=== PATIENT | female | born 1940 | race Caucasian/White ===

== ENCOUNTER → 2017-12-04 08:55 | Outpatient (CLI) | payer MEDICARE, OTHER, SELFPAY ==
[2017-12-04 11:47] LABS: Alanine Aminotransferase 34 IU/L (9-52); Albumin 4.2 g/dL (3.5-5.0); Albumin Globulin Ratio 1.6 (1.0-2.8); Alkaline Phosphatase 113 U/L (38-126); Aspartate Aminotransferase 21 IU/L (14-36); BUN Creatinine Ratio 26.3 (6-22); Bilirubin Total 0.4 mg/dL (0.2-1.3); Blood Urea Nitrogen 21 mg/dL (7-17); Calcium 9.8 mg/dL (8.4-10.2); Carbon Dioxide 29 mmol/L (22-32); Chloride 105 mmol/L (98-107); Estimated Glomerular Filt Rate > 60.0 mL/min (>60); Globulin 2.6 g/dL (1.7-4.1); Glucose 100 mg/dL (80-110); HDL Cholesterol 67 mg/dL (40-60); HEMOLYSIS < 15 (0-50); Sodium 142 mmol/L (137-145); Total Protein 6.8 g/dL (6.3-8.2); Triglycerides 156 mg/dL (35-150)
[2017-12-04 12:02] LABS: Cholesterol 374 mg/dL (140-199); LDL Cholesterol Calculated 276 mg/dL (<100); Potassium 5.5 mmol/L (3.4-5.1)
== END ==
PROVIDERS: PCP Family Medicine; Visit Provider Family Medicine
DX: E03.9 Hypothyroidism, unspecified (principal)
CPT/HCPCS: 36415; 80053; 80061

== ENCOUNTER 2017-12-11 06:50 | Outpatient (CLI) | payer MEDICARE, OTHER, SELFPAY ==
[2017-12-11] VITALS (9 sets, daily range): BP systolic 115–133; BP diastolic 56–83; PULSE 62–75; RESP 16; TEMP 36.2; O2SAT 99–100
--- NOTE | 2017-12-11 06:54 | DI.RAD.S_ITS ---
PROCEDURE: PAIN L INTERLAMINAR/CAUDAL INJ INDICATIONS: 76 year-old female with spinal stenosis, undergoing L4-L5 translaminar injection. FINDINGS: Fluoroscopic spot filming was performed to verify placement of spinal needles at the midline L4-L5 level(s), as labeled on the films. Appropriate location(s) of the needle tip(s) was confirmed by injection of iodinated contrast. IMPRESSION: Fluoroscopic guidance for L4-L5 posterior epidural injection. Dictated by: Jerel Camilo M.D. on 12/11/2017 at 17:32 Approved by: Jerel Camilo M.D. on 12/11/2017 at 17:33
[2017-12-11] MEDS: MIDAZOLAM 2 MG/2 ML VIAL IV (08:23)
--- NOTE | 2017-12-11 08:46 | P.PCN_ITS ---
Procedures Date/Time Date of procedure: 12/11/17 Time of procedure: 08:44 General Procedure description: Operative Note PREOP DIAGNOSIS 1. HNP WITH RADICULAR FEATURES, 2. MULTILEVEL CENTRAL STENOSIS, POST OP DIAGNOSIS 1. HNP WITH RADICULAR FEATURES, 2. MULTILEVEL CENTRAL STENOSIS, PROCEDURES 1. FLUORSCOPICALLY GUIDED CONTRAST CONTROLLED INTERLAMINAR EPIDURAL STEROID INJECTION - L5/S1 PHYSICIAN: Rayray Vincent DO INDICATIONs: [] is referred by [] for treatment of Bilateral Foraminal Stenosis R>L LE symptoms. FINDINGS Multilevel Central Spinal Stenosis with Nerve Root Compression DESCRIPTION OF PROCEDURE Fluoroscopically guided, contrast-controlled L5/S1 translaminar epidural steroid injection. Following denial of allergy and review of potential side effects and complications, including, but not necessarily limited to, infection, allergic reaction, local tissue breakdown, temporary as well as permanent nerve injury, paralysis, stroke and possible , the patient indicated that the patient understood and agreed to proceed. An informed consent document was signed by the patient, witnessed by a nurse, and placed in the patient's chart. Additionally, other treatment options including modalities, medications, and physical therapy were reviewed with the patient. Per the patient request, IV conscious sedation was administered via 2mg of Versed to patient comfort. The patient's vital signs were monitored throughout the procedure by both the nurse and the physician without significant fluctuation. The patient remained conversant throughout the procedure. In the prone position, following sterile prep and drape of the lumbar region, the L5/S1 translaminar space was identified fluoroscopically. The skin was anesthetized via a 25-gauge, 1.5-inch needle with 1% lidocaine solution. At this point, a 22-gauge short bevel spinal needle was atraumatically introduced and advanced under fluoroscopic guidance into the region of the L4/5 translaminar space. Depth was confirmed on lateral view. Radiological data, including multiple fluoroscopic views of the lumbar spine, reveal a spinal needle at the L5/S1 translaminar space. Lateral views then show placement of the needle in the epidural space. Subsequent views show contrast material flowing superiorly and inferiorly in the epidural space. No vascular or intrathecal uptake is observed. At this point, using loss of resistance technique with saline and air, the epidural space was entered. This was confirmed following negative aspiration with injection of approximately 1.5 cc of Isovue 200, showing excellent epidural flow without vascular or intrathecal uptake. At this point, 1 cc of 1 % lidocaine solution combined with 3 cc or 20 mg of dexamethasone and 80mg Depo medrol was injected without incident. The patient was then transferred to the recovery area where they were observed for an appropriate period of time after the injection. The patient reported a VAS score of 6 prior to the procedure and a post-procedure VAS of 0. Total Fluoroscopy Time: 11.8 seconds, 8.99 mGy Total Conscious Sedation Time: 24min POST OP INSTRUCTIONS The patient was provided a Pain Log to continue to record their response to the target-specific procedure prior to follow-up visit with their referring physician. Additionally, specific post-injection care instructions and a contact number to our office were provided if concerns arise regarding possible complications associated with the procedure are suspected. Rayray Vincent DO
[2017-12-11] MEDS: DEXAMETHASONE 10 MG/ML VIAL 20 MG INJ (09:25)
[2017-12-11] MEDS: BUPIVACAINE 0.25% (PF) 30 ML VIAL INJ (09:25)
[2017-12-11] MEDS: IOPAMIDOL 15 ML VIAL 3 ML INJ (09:25)
[2017-12-11] MEDS: methylPREDNISolone acetate 80 MG/ML VIAL INJ (09:25)
== END 2017-12-11 09:43 | disposition home or self-care (01) ==
LOC: RAD 06:51
PROVIDERS: PCP Family Medicine; Visit Provider Physical Medicine & Rehabilitation
DX: M48.061 Spinal stenosis, lumbar region without neurogenic claudication (principal); M41.20 Other idiopathic scoliosis, site unspecified
CPT/HCPCS: 62323; 99152; J1040; J1100; J2250

== ENCOUNTER → 2018-05-01 07:47 | Outpatient (CLI) | payer MEDICARE, OTHER, SELFPAY ==
--- NOTE | 2018-05-01 | DI.MG.S_ITS ---
UNILATERAL RIGHT DIGITAL SCREENING MAMMOGRAM 3D/2D WITH CAD POST MASTECTOMY: 05/01/2018 CLINICAL: Routine screening. Personal history of left breast cancer. Family history of breast cancer. Comparison is made to exams dated: 04/25/2017 mammogram, 10/23/2016 mammogram, and 10/08/2016 mammogram - [facility]. The tissue of right breast is extremely dense, which lowers the sensitivity of mammography. Current study was also evaluated with a Computer Aided Detection (CAD) system. No significant masses, calcifications, or other findings are seen in the breast. There has been no significant interval change. IMPRESSION: NEGATIVE There is no mammographic evidence of malignancy. A 1 year screening mammogram is recommended. This exam was interpreted at Station ID: [id number]. NOTE: For mammograms, a report in lay terms will be sent to the patient. Approximately 15% of breast malignancies will not be visualized mammographically. In the management of a palpable breast mass, a negative mammogram must not discourage biopsy of a clinically suspicious lesion. Electronically Signed By: Tino alba/jun:05/04/2018 01:53:59 letter sent: Normal Exam ACR BI-RADS Category 1: Negative [id number]
== END ==
PROVIDERS: PCP Family Medicine; Visit Provider Family Medicine
DX: Z12.31 Encounter for screening mammogram for malignant neoplasm of breast (principal); Z85.3 Personal history of malignant neoplasm of breast; Z80.3 Family history of malignant neoplasm of breast
CPT/HCPCS: 77063; 77065

== ENCOUNTER → 2018-07-15 08:48 | Outpatient (CLI) | payer MEDICARE, OTHER, SELFPAY ==
[2018-07-15 10:38] LABS: Thyroid Stimulating Hormone 0.89 uIU/mL (0.47-4.68)
== END ==
PROVIDERS: PCP Family Medicine; Visit Provider Family Medicine
DX: E03.9 Hypothyroidism, unspecified (principal)
CPT/HCPCS: 36415; 84443

== ENCOUNTER 2018-10-21 12:16 | Outpatient (CLI) | payer MEDICARE, OTHER, SELFPAY ==
[2018-10-21] VITALS (8 sets, daily range): BP systolic 119–137; BP diastolic 63–73; PULSE 71–82; RESP 16–18; TEMP 36.2; O2SAT 95–100
--- NOTE | 2018-10-21 12:22 | DI.RAD.S_ITS ---
PROCEDURE: PAIN L INTERLAMINAR/CAUDAL INJ INDICATIONS: SPONDYLOSIS FINDINGS: Fluoroscopic spot filming was performed to verify placement of spinal needles at the L4-5 midline translaminar level, as labeled on the films. Appropriate location(s) of the needle tip(s) was confirmed by injection of iodinated contrast. IMPRESSION: Normal needle tip positioning for L5 level interlaminar notch epidural steroid injection. Dictated by: Deyvi Paniagua M.D. on 10/21/2018 at 14:46 Approved by: Deyvi Paniagua M.D. on 10/21/2018 at 14:47
[2018-10-21] MEDS: MIDAZOLAM 5 MG/5 ML VIAL IV (13:15)
[2018-10-21] MEDS: BUPIVACAINE 0.25% (PF) VIAL 2 ML INJ (13:22)
[2018-10-21] MEDS: DEXAMETHASONE 10 MG/ML VIAL 20 MG INJ (13:23)
[2018-10-21] MEDS: IOPAMIDOL 15 ML VIAL 3 ML INJ (13:23)
--- NOTE | 2018-10-21 13:29 | PC.NURSE ---
Pt tolerated procedure well. Able to get off table with 2 person minimal assist. Pt's legs a little unsteady. Transferred pt to preprocedure room via wheelchair for continued monitoring with Candace MATTA.
--- NOTE | 2018-10-21 13:34 | P.PCN_ITS ---
Procedures Date/Time Date of procedure: 10/21/18 Time of procedure: 13:33 General Procedure description: PROVIDER: Rayray Vincent DO Operative Note PREOP DIAGNOSIS 1. HNP WITH RADICULAR FEATURES, 2. MULTILEVEL CENTRAL STENOSIS, POST OP DIAGNOSIS 1. HNP WITH RADICULAR FEATURES, 2. MULTILEVEL CENTRAL STENOSIS PROCEDURES 1. FLUORSCOPICALLY GUIDED CONTRAST CONTROLLED INTERLAMINAR EPIDURAL STEROID INJECTION -L4/5 PHYSICIAN: Rayray Vincent DO INDICATIONs: Alejandra is referred by Dr. Moses for treatment of Bilateral Foraminal Stenosis R>L LE symptoms. FINDINGS Multilevel Central Spinal Stenosis with Nerve Root Compression DESCRIPTION OF PROCEDURE Fluoroscopically guided, contrast-controlled L4/5 translaminar epidural steroid injection. Following denial of allergy and review of potential side effects and complications, including, but not necessarily limited to, infection, allergic reaction, local tissue breakdown, temporary as well as permanent nerve injury, paralysis, stroke and possible , the patient indicated that the patient understood and agreed to proceed. An informed consent document was signed by the patient, witnessed by a nurse, and placed in the patient's chart. Additionally, other treatment options including modalities, medications, and physical therapy were reviewed with the patient. After review of previous anaesthesic history and IV conscious sedation the patient was deemed safe to proceed with todays procedure with IV conscious sedation as ASA class II designation. Safety time-out was performed to confirm patient ID, procedure to be performed and site of procedure. IV sedation was ac complished with a combination of 2mg of Versed was administered by the RN after DO order, titrated to patient comfort during the course of the procedure while the patient remained responsive to all verbal commands In the prone position, following sterile prep and drape of the lumbar region, the L4/5 translaminar space was identified fluoroscopically. The skin was anesthetized via a 25-gauge, 1.5-inch needle with 1% lidocaine solution. At this point, a 22-gauge short bevel spinal needle was atraumatically introduced and advanced under fluoroscopic guidance into the region of the L4/5 transla minar space. Depth was confirmed on lateral view. Radiological data, including multiple fluoroscopic views of the lumbar spine, reveal a spinal needle at the L4/5 translaminar space. Lateral views then show placement of the needle in the epidural space. Subsequent views show contrast material flowing superiorly and inferiorly in the epidural space. No vascular or intrathecal uptake is observed. At this point, using loss of resistance technique with saline and air, the epidural space was entered. This was confirmed following negative aspiration with injection of approximately 1.5 cc of Isovue 200, showing excellent epidural flow without vascular or intrathecal uptake. At this point, 1 cc of 1% lidocaine solution combined with 2cc or 20mg of dexamethasone was injected without incident. The patient tolerated the procedure well without signs or symptoms of complications prior to transfer to the recovery area continued monitoring without incident. The patient was then transferred to the recovery area where they were observed for an appropriate period of time after the injection. The patient reported a VAS score of 6 prior to the procedure and a post- procedure VAS of 0. Total Fluoroscopy Time: 11.8 seconds, 8.99 mGy Total Conscious Sedation Time: 24min POST OP INSTRUCTIONS The patient was provided a Pain Log to continue to record their response to the target-specific procedure prior to follow-up visit with their referring physician. Additionally, specific post-injection care instructions and a contact number to our office were provided if concerns arise regarding possible complications associated with the procedure are suspected. Rayray Vincent, Complications: none
--- NOTE | 2018-10-21 13:36 | PC.NURSE ---
ACCEPTED CARE OF PT IN STABLE CONDITION IN POST PROC AREA.
--- NOTE | 2018-10-22 12:21 | PC.NURSE ---
Follow up call made post L4/5 Translaminar AMISH, message left as pt did not answer the phone.
== END 2018-10-21 15:16 | disposition home or self-care (01) ==
PROVIDERS: PCP Family Medicine; Visit Provider Physical Medicine & Rehabilitation
DX: M48.061 Spinal stenosis, lumbar region without neurogenic claudication (principal); M47.817 Spondylosis without myelopathy or radiculopathy, lumbosacral region
CPT/HCPCS: 62323; 99152; J1100; J2250; J3010

== ENCOUNTER → 2019-01-20 12:27 | Outpatient (CLI) | payer MEDICARE, OTHER, SELFPAY ==
[2019-01-20 13:02] LABS: Add Manual Diff / Slide Review NO; Basophils Absolute Auto 0 /uL (0-100); Eosinophils Absolute Auto 200 /uL (0-450); Eosinophils Percent Auto 3.6 % (2-4); Hemoglobin 12.4 g/dL (12.0-16.0); Lymphocytes Absolute Auto 1500 /uL (1100-4500); Lymphocytes Percent Auto 31.4 % (25-40); Mean Corpuscular HGB Conc 32.6 % (30-36); Mean Corpuscular Hemoglobin 29.6 PG (26-34); Mean Corpuscular Volume 90.9 fL (80-100); Monocytes Absolute Auto 300 /uL (0-900); Monocytes Percent Auto 7.5 % (3-14); Neutrophils Absolute Auto 2600 /uL (1500-7000); Neutrophils Percent Auto 56.5 % (50-75); Platelet Count 238 X10^3/uL (150-400); Red Blood Cell Count 4.19 X10^6/uL (4.0-5.2); Red Cell Distribution Width 13.5 % (11.6-14.8); White Blood Cell Count 4.6 X10^3/uL (4.5-11.0)
[2019-01-20 13:41] LABS: Alanine Aminotransferase 31 IU/L (9-52); Albumin 4.2 g/dL (3.5-5.0); Albumin Globulin Ratio 1.6 (1.0-2.8); Alkaline Phosphatase 109 U/L (38-126); Aspartate Aminotransferase 21 IU/L (14-36); Bilirubin Total 0.3 mg/dL (0.2-1.3); Blood Urea Nitrogen 20 mg/dL (7-17); Calcium 9.7 mg/dL (8.4-10.2); Carbon Dioxide 27 mmol/L (22-32); Chloride 107 mmol/L (98-107); Estimated Glomerular Filt Rate > 60.0 mL/min (>60); Globulin 2.6 g/dL (1.7-4.1); Glucose 94 mg/dL (80-110); HEMOLYSIS < 15 (0-50); Potassium 4.3 mmol/L (3.4-5.1); Sodium 142 mmol/L (137-145); Total Protein 6.8 g/dL (6.3-8.2)
[2019-01-20 14:16] LABS: Thyroid Stimulating Hormone 0.21 uIU/mL (0.47-4.68)
[2019-01-20 17:07] LABS: Free T4, Direct Thyroxine 1.07 ng/dL (0.78-2.19)
== END ==
PROVIDERS: Visit Provider Hospitalist
DX: R26.89 Other abnormalities of gait and mobility (principal); R79.89 Other specified abnormal findings of blood chemistry; E03.8 Other specified hypothyroidism
CPT/HCPCS: 36415; 80053; 84439; 84443; 84481; 85025

== ENCOUNTER 2019-02-23 10:13 | Emergency (ER) | payer MEDICARE, OTHER, SELFPAY ==
[2019-02-23 10:37] VITALS: BP 119/76; PULSE 88; RESP 18; TEMP 36.9; O2SAT 100
--- NOTE | 2019-02-23 10:40 | DI.RAD.S_ITS ---
PROCEDURE: XR RIBS LT MIN 3V W CXR1V INDICATIONS: fall w/ left anterior rib pain. TECHNIQUE: 2 views of the left ribs were acquired, along with a single view chest. COMPARISON: CXR 09/05/2016. FINDINGS: Surgical changes and devices: Left breast/axilla surgical clips. Bones and chest wall: No displaced rib fracture demonstrated. No dislocation. No suspicious bony lesions. Overlying soft tissues appear unremarkable. Mild scoliosis. Lungs and pleura: No pleural effusions or pneumothorax. Mild increased interstitial markings and increased lung volumes. Mediastinum: Mediastinal contours appear normal. Heart size is normal. IMPRESSION: No rib fracture identified. Emphysematous change. Dictated by: Zak Ruby M.D. on 02/23/2019 at 11:13 Approved by: Zak Ruby M.D. on 02/23/2019 at 11:18
[2019-02-23 11:56] VITALS: BP 112/68; PULSE 68; RESP 17; O2SAT 100
[2019-02-23 12:00] VITALS: BP 111/60; PULSE 63; RESP 16; O2SAT 100
[2019-02-23] MEDS: LIDOCAINE PATCH 1 EACH ADH..PATCH TOP (12:04)
[2019-02-23 12:13] VITALS: PULSE 71; RESP 14; O2SAT 99
--- NOTE | 2019-02-23 12:19 | ED_ITS ---
HPI - Chest Pain <YNES Recio - Last Filed: 02/23/19 12:36> General Chief Complaint: Chest Pain Stated Complaint: pain with deep breath post fall Time Seen by Provider: 02/23/19 11:26 Source: patient Mode of arrival: ambulatory Limitations: no limitations History of Present Illness HPI narrative: The patient is an 78-year-old female cancer who presents for chief complaint of chest wall pain. She states that she was picking plums, when she tripped on a stump and fell, landing with her chest on the stump. She states that the left side of the front of her chest is painful. She states she has had a mastectomy on that side. She states that it hurts worse when she takes a deep breath or coughs. She denies any shortness of breath. She has not taken anything for the pain. She denies any neck pain, back pain, hitting her head, loss of consciousness or any other issues. She denies any abdominal pain. She is adamant that she tripped on the stump did not have an episode of syncope. Related Data Home Medications Medication Instructions Recorded Confirmed cholecalciferol (vitamin D3) 5,000 5,000 unit PO DAILY 12/05/17 02/23/19 unit capsule latanoprost 0.005 % eye drops 1 drp EYE-BOTH QPM 90 Days #7 ml 05/09/18 02/23/19 [LT BREAST PROSTHETIC] 1 ea MISCELLANEOUS DIRECTED 02/23/19 02/23/19 [PROSTHETIC BRA SUPPO] 1 ea MISCELLANEOUS DIRECTED 02/23/19 02/23/19 levothyroxine [Synthroid] 50 mcg PO DAILY 02/23/19 02/23/19 sertraline 75 mg PO BEDTIME 02/23/19 02/23/19 Previous Rx's Medication Instructions Recorded celecoxib 200 mg capsule 200 mg PO DAILY #90 cap 12/08/18 hydrocodone-acetaminophen [[place]] 1 tab PO Q4-6H PRN #7 tab 02/23/19 lidocaine 1 patch TOP DAILY #15 each 02/23/19 Allergies Allergy/AdvReac Type Severity Reaction Status Date / Time No Known Drug Allergies Allergy Verified 02/23/19 10:40 Review of Systems <YNES Recio - Last Filed: 02/23/19 12:36> Review of Systems GENERAL: Denies chills, fatigue, malaise, fever, sweats. HEENT: Denies sinus pain, ear pain, sore throat, difficulty swallowing, dizziness. RESPIRATORY: See HPI CARDIOVASCULAR: Denies chest pain, palpitations, orthopnea, edema, GASTROINTESTINAL: Denies nausea, vomiting, abdominal pain, diarrhea, constipation, melena. : Denies dysuria, frequency, incontinence, hematuria, urinary retention. MUSCULOSKELETAL: See HPI SKIN: Denies rash, skin lesions, or other NEUROLOGIC: Denies weakness, headache, numbness, change in speech, confusion, seizures, incoordination. PSYCHIATRIC: No concerning psychosocial issues. 12 point review of systems is negative except for those stated above PFS <YNES Recio - Last Filed: 02/23/19 12:36> Medical History Complete rotator cuff tear of left shoulder (Chronic) Hx of breast cancer (Chronic) Lumbar facet arthropathy (Chronic) Lumbar spinal stenosis (Chronic) Scoliosis (and kyphoscoliosis), idiopathic (Chronic) Acquired hypothyroidism (Chronic 02/08/17) Recurrent major depressive disorder, in full remission (Chronic 02/08/17) Chronic back pain (Chronic 1984) Hayfever (Chronic 1980) Hearing loss (Chronic) Osteoporosis (Chronic) Rheumatoid arthritis (Chronic 193) Shoulder pain (Chronic 1997) Breast cancer (Resolved 2013) Cataract (Resolved) Melanoma (Resolved) Mumps (Resolved 1955) Retinal detachment (Resolved) Thyroid nodule (Resolved ~1979) Tuberculosis (Resolved) Surgical History Anesthesia (Resolved) History of detached retina repair (Resolved 1992) History of detached retina repair (Resolved 1985) History of hip replacement (Resolved 2009) History of shoulder surgery (Resolved) History of sinus surgery (Resolved 1986) History of sinus surgery (Resolved 1988) History of sinus surgery (Resolved 1992) Family History Sister Age: 91 High cholesterol Diabetes mellitus Sister Age: 84 High cholesterol Brother No problems noted. Father Tuberculosis Mother No problems noted. Social History marital status: pets and animals: Yes education level: college seatbelt use: always helmet use: Yes water heater temp set < 120 deg: Yes working smoke detector in home: Yes fire extinguisher in home: Yes carbon monox detector in home: Yes Smoking Status: Never smoker during the past year weight has: remained stable well-balanced diet: daily or most days daily servings fruits/ve-4 caffeine: Yes eating out: rarely or never Type(s) of exercise: walking frequency: daily duration: other Family History Sister Age: 91 High cholesterol Diabetes mellitus Sister Age: 84 High cholesterol Brother No problems noted. Father Tuberculosis Mother No problems noted. Social History marital status: pets and animals: Yes education level: college seatbelt use: always helmet use: Yes water heater temp set < 120 deg: Yes working smoke detector in home: Yes fire extinguisher in home: Yes carbon monox detector in home: Yes Smoking Status: Never smoker during the past year weight has: remained stable well-balanced diet: daily or most days daily servings fruits/ve-4 caffeine: Yes eating out: rarely or never Type(s) of exercise: walking frequency: daily duration: other Exam <YNES Recio - Last Filed: 02/23/19 12:36> Narrative Exam Narrative: GENERAL: This is a well-nourished, well-developed patient, no acute distress HEAD: Atraumatic. Normocephalic. No temporal or scalp tenderness. EYES: Pupils equal round and reactive. Extraocular motions intact. No scleral icterus. No injection or drainage. ENT: Nose without bleeding, purulent drainage or septal hematoma. Throat without erythema, tonsillar hypertrophy or exudate. Uvula midline. Airway patent. NECK: Trachea midline. No JVD or lymphadenopathy. Supple, nontender, no meningeal signs. CARDIOVASCULAR: Regular rate and rhythm RESPIRATORY: Clear to auscultation. Breath sounds equal bilaterally. No wheezes, rales, or rhonchi. No cough. No increased respiratory effort. No accessory muscle use. Pain to palpation of left side anterior chest wall. Pain to anterior posterior chest wall compression as well as lateral chest wall compression. Point tenderness noted just distal to mastectomy incision with overlying ecchymosis. GASTROINTESTINAL: Abdomen soft, non-tender, nondistended. No hepato- splenomegaly, or palpable masses. No guarding. EXTREMITIES: No clubbing, cyanosis, or edema. No joint tenderness, effusion, or edema noted. BACK: Nontender without deformity or crepitance. No flank tenderness. NEURO: AOx3. SKIN: Slight ecchymosis noted on anterior aspect of chest wall by mastectomy scar. Initial Vital Signs Initial Vital Signs: Vital Signs Temperature 98.4 F 02/23/19 10:37 Pulse Rate 88 02/23/19 10:37 Respiratory Rate 18 02/23/19 10:37 Blood Pressure 119/76 02/23/19 10:37 Pulse Oximetry 100 02/23/19 10:37 <Geovanna Arnett DO - Last Filed: 02/24/19 07:04> Initial Vital Signs Initial Vital Signs: Vital Signs Temperature 98.4 F 02/23/19 10:37 Pulse Rate 88 02/23/19 10:37 Respiratory Rate 18 02/23/19 10:37 Blood Pressure 119/76 02/23/19 10:37 Pulse Oximetry 100 02/23/19 10:37 Course <LENORA RecioBC - Last Filed: 02/23/19 12:36> Orders Ordered: Discontinued Medications Lidocaine (Lidoderm) 1 each TOP NOW ONE Stop: 02/23/19 11:50 Last Admin: 02/23/19 12:04 Dose: 1 each Vital Signs - 8 hr 02/23/19 10:37 02/23/19 11:56 02/23/19 12:00 Temperature 98.4 F Pulse Rate 88 68 63 Respiratory Rate 18 17 16 Blood Pressure 119/76 Blood Pressure [Left Arm] 112/68 111/60 Pulse Oximetry 100 100 100 02/23/19 12:13 Temperature Pulse Rate 71 Respiratory Rate 14 Blood Pressure Blood Pressure [Left Arm] Pulse Oximetry 99 <Geovanna Arnett DO - Last Filed: 02/24/19 07:04> Orders Ordered: Discontinued Medications Lidocaine (Lidoderm) 1 each TOP NOW ONE Stop: 02/23/19 11:50 Last Admin: 02/23/19 12:04 Dose: 1 each Vital Signs - 8 hr 02/23/19 10:37 02/23/19 11:56 02/23/19 12:00 Temperature 98.4 F Pulse Rate 88 68 63 Respiratory Rate 18 17 16 Blood Pressure 119/76 Blood Pressure [Left Arm] 112/68 111/60 Pulse Oximetry 100 100 100 02/23/19 12:13 Temperature Pulse Rate 71 Respiratory Rate 14 Blood Pressure Blood Pressure [Left Arm] Pulse Oximetry 99 MDM - Chest Pain <Ina PachecoETHEL-BC - Last Filed: 02/23/19 12:36> Imaging Data Chest x-ray: Radiologist's impression: Alejandra León 78 F [address] [address] XRay Report Signed Patient: Alejandra León LMR#: [id number] : 1940cct:[id number] Age/Sex: 78 / FDate of Service: 02/23/19 Loc: ED Accession Number: [id number] Procedure: XR ribs LT min 3V w CXR1V Ordering Provider: Geovanna Arnett D.O. PROCEDURE: XR RIBS LT MIN 3V W CXR1V INDICATIONS: fall w/ left anterior rib pain. TECHNIQUE: 2 views of the left ribs were acquired, along with a single view chest. COMPARISON: CXR 09/05/2016. FINDINGS: Surgical changes and devices: Left breast/axilla surgical clips. Bones and chest wall: No displaced rib fracture demonstrated. No dislocation. No suspicious bony lesions. Overlying soft tissues appear unremarkable. Mild scoliosis. Lungs and pleura: No pleural effusions or pneumothorax. Mild increased interstitial markings and increased lung volumes. Mediastinum: Mediastinal contours appear normal. Heart size is normal. IMPRESSION: No rib fracture identified. Emphysematous change. Dictated by: Zak Ruby M.D. on 02/23/2019 at 11:13 Approved by: Zak Ruby M.D. on 02/23/2019 at 11:18 [facility] Narrative Medical decision making narrative: The patient is an 78-year-old female who presents with a chief complaint of chest wall pain after ground level fall onto a tree stump. She is in no respiratory distress, oxygenating well. However she does have point tenderness on exam as well as tenderness when taking a deep breath. Rib x-ray show no acute fracture. However treat her back chest wall contusion. We discussed the use of deep breathing help prevent pneumonia. She was given incentive spirometer teaching by respiratory therapy. I did give her small pain medication prescription order to help her sleep. She was treated with lidocaine patches the emergency department. Encouraged follow-up with PCP as well as come back to the ER for any acute concerns chest as severe respiratory distress. No questions or concerns upon discharge. Patient is hemodynamically stable nontoxic-appearing throughout her stay in the ER. Discharge Plan Departure Patient Disposition: Home Clinical Impression: Chest wall contusion Qualifiers: Encounter type: initial encounter Laterality: left Qualified Code(s): S20.212A - Contusion of left front wall of thorax, initial encounter Discharge Date/Time: 02/23/19 12:36 Interventions: ED Discharge Assessment Last Done: 02/23/19 12:36 Instructions: How to Use an Incentive Spirometer, DI for Contusion, DI for Rib Contusion Activity Restrictions/Additional Instructions: Your chest chest x-ray shows no rib fractures. However you appear to have a chest wall contusion. I have given you prescriptions of pain medicine as well as Numbing patches. Be aware that [place] can be constipating and sedating. I also suggest ice and Tylenol as needed. Please use The incentive spirometer. Please follow up with her primary care provider. Please come back to emergency department for any acute concerns as a severe respiratory distress, concern of heart attack or stroke Prescriptions: New hydrocodone-acetaminophen [[place]] 5-325 mg tablet 1 tab PO Q4-6H PRN (Reason: pain) Qty: 7 RF: 0 lidocaine 5 % adhesive patch,medicated 1 patch TOP DAILY Qty: 15 RF: 0 No Action levothyroxine [Synthroid] 50 mcg tablet 50 mcg PO DAILY RF: 0 sertraline 25 mg tablet 75 mg PO BEDTIME RF: 0 [LT BREAST PROSTHETIC] 1 ea miscellaneous DIRECTED RF: 0 [PROSTHETIC BRA SUPPO] 1 ea miscellaneous DIRECTED RF: 0 celecoxib [Celebrex] 200 mg capsule 200 mg PO DAILY Qty: 90 RF: 2 cholecalciferol (vitamin D3) 5,000 unit capsule 5,000 unit PO DAILY RF: 0 latanoprost 0.005 % drops 1 drp EYE-BOTH QPM 90 Days Qty: 7 RF: 0 <Geovanna Arnett DO - Last Filed: 02/24/19 07:04> Cosign ED Attending Cosnasimaature Attestation: I was immediately available in the department for consultation. Documentation has been reviewed. I agree with assessment and plan.
== END 2019-02-23 12:36 | disposition home or self-care (01) ==
PROVIDERS: Emergency Provider Nurse Practitioner Family
DX: S20.212A Contusion of left front wall of thorax, initial encounter (principal); W01.0XXA Fall on same level from slipping, tripping and stumbling without subsequent striking against object, initial encounter
CPT/HCPCS: 71101; 99282; 99283

== ENCOUNTER → 2019-05-04 12:59 | Outpatient (CLI) | payer MEDICARE, OTHER, SELFPAY ==
--- NOTE | 2019-05-04 | DI.MG.S_ITS ---
UNILATERAL RIGHT DIGITAL SCREENING MAMMOGRAM 3D/2D WITH CAD POST MASTECTOMY: 05/04/2019 CLINICAL: Routine screening. Personal history of left breast cancer. Family history of breast cancer. Comparison is made to exams dated: 05/01/2018 mammogram, 04/25/2017 mammogram, and 10/23/2016 mammogram - [facility]. The tissue of right breast is extremely dense, which lowers the sensitivity of mammography. Current study was also evaluated with a Computer Aided Detection (CAD) system. No significant masses, calcifications, or other findings are seen in the breast. There has been no significant interval change. IMPRESSION: NEGATIVE There is no mammographic evidence of malignancy. A 1 year screening mammogram is recommended. This exam was interpreted at Station ID: [id number]. NOTE: For mammograms, a report in lay terms will be sent to the patient. Approximately 15% of breast malignancies will not be visualized mammographically. In the management of a palpable breast mass, a negative mammogram must not discourage biopsy of a clinically suspicious lesion. Electronically Signed By: Brenna [email or web address]/jun:05/04/2019 17:15:52 letter sent: Normal Exam ACR BI-RADS Category 1: Negative [id number]
== END ==
PROVIDERS: Visit Provider Family Medicine
DX: Z12.31 Encounter for screening mammogram for malignant neoplasm of breast (principal); Z85.3 Personal history of malignant neoplasm of breast; Z80.3 Family history of malignant neoplasm of breast
CPT/HCPCS: 77063; 77067

== ENCOUNTER → 2019-05-13 09:56 | Outpatient (CLI) | payer MEDICARE, OTHER, SELFPAY ==
[2019-05-13 10:12] LABS: Bacteria Urine None Seen; RBC Urine None Seen (0-5/HPF)
[2019-05-13 10:57] LABS: Add Manual Diff / Slide Review NO; Basophils Absolute Auto 0 /uL (0-100); Basophils Percent Auto 0.7 % (0-2); Eosinophils Absolute Auto 200 /uL (0-450); Eosinophils Percent Auto 3.3 % (2-4); Hematocrit 38.4 % (36-46); Hemoglobin 12.8 g/dL (12.0-16.0); Lymphocytes Absolute Auto 1200 /uL (1100-4500); Lymphocytes Percent Auto 26.4 % (25-40); Mean Corpuscular HGB Conc 33.3 % (30-36); Mean Corpuscular Hemoglobin 29.9 PG (26-34); Mean Corpuscular Volume 89.9 fL (80-100); Monocytes Absolute Auto 400 /uL (0-900); Monocytes Percent Auto 8.5 % (3-14); Neutrophils Absolute Auto 2900 /uL (1500-7000); Neutrophils Percent Auto 61.1 % (50-75); Platelet Count 241 X10^3/uL (150-400); Red Blood Cell Count 4.28 X10^6/uL (4.0-5.2); Red Cell Distribution Width 13.2 % (11.6-14.8); White Blood Cell Count 4.7 X10^3/uL (4.5-11.0)
[2019-05-13 11:02] LABS: Hemoglobin A1C% w Est Avg Glu 5.9 % (4.0-6.0)
[2019-05-13 11:10] LABS: BUN Creatinine Ratio 26.3 (6-22); Blood Urea Nitrogen 21 mg/dL (7-17); Calcium 9.6 mg/dL (8.4-10.2); Carbon Dioxide 30 mmol/L (22-32); Chloride 103 mmol/L (98-107); Estimated Glomerular Filt Rate > 60.0 mL/min (>60); Glucose 98 mg/dL (80-110); HEMOLYSIS < 15 (0-50); Potassium 4.2 mmol/L (3.4-5.1); Sodium 140 mmol/L (137-145)
[2019-05-13 13:47] LABS: Appearance Urine UA CLEAR; Bilirubin Urine UA NEGATIVE (NEGATIVE); Color Urine UA YELLOW; Glucose Urine UA NEGATIVE (Negative); Ketones Urine UA NEGATIVE (NEGATIVE); Leukocyte Esterase Urine UA 1+ (NEGATIVE); Nitrite Urine UA NEGATIVE (Negative); Occult Blood Urine UA NEGATIVE (Negative); Protein Urine UA NEGATIVE (Negative); Specific Gravity Urine UA <=1.005 (1.000-1.035); Urobilinogen Urine UA 0.2 E.U./dL (0.2)
[2019-05-13 14:02] LABS: Culture Indicated Urine Specimen Cultured; WBC Urine 5-10/HPF (0-5/HPF)
== END ==
PROVIDERS: Hospitalist; Family Provider Family Medicine; PCP Family Medicine; Visit Provider Orthopaedic Surgery
DX: Z01.818 Encounter for other preprocedural examination (principal); Z01.812 Encounter for preprocedural laboratory examination; N39.9 Disorder of urinary system, unspecified; Z13.1 Encounter for screening for diabetes mellitus; R73.9 Hyperglycemia, unspecified; E03.9 Hypothyroidism, unspecified
CPT/HCPCS: 36415; 80048; 81001; 83036; 84443; 85025; 87086; 93005; 93010

== ENCOUNTER 2019-05-15 13:34 | Outpatient (CLI) | payer MEDICARE, OTHER, SELFPAY ==
[2019-05-15] VITALS (8 sets, daily range): BP systolic 105–131; BP diastolic 48–68; PULSE 73–84; RESP 16–18; TEMP 36.5; O2SAT 97–100
--- NOTE | 2019-05-15 13:36 | DI.RAD.S_ITS ---
PROCEDURE: PAIN L INTERLAMINAR/CAUDAL INJ INDICATIONS: SCOLIOSIS FINDINGS: Fluoroscopic spot filming was performed to verify placement of spinal needles at the L4-L5 level(s), as labeled on the films. Appropriate location(s) of the needle tip(s) was confirmed by injection of iodinated contrast. IMPRESSION: Fluoroscopy for pain management. Dictated by: Patito Desai M.D. on 05/15/2019 at 17:08 Approved by: Patito Desai M.D. on 05/15/2019 at 17:08
[2019-05-15] MEDS: MIDAZOLAM 5 MG/5 ML VIAL IV (16:11)
[2019-05-15] MEDS: methylPREDNISolone acetate 80 MG/ML VIAL INJ (16:16)
[2019-05-15] MEDS: IOPAMIDOL 15 ML VIAL 3 ML INJ (16:16)
[2019-05-15] MEDS: BUPIVACAINE 0.25% (PF) VIAL 2 ML INJ (16:16)
[2019-05-15] MEDS: DEXAMETHASONE 10 MG/ML VIAL 20 MG INJ (16:17)
--- NOTE | 2019-05-15 16:48 | P.PCN_ITS ---
Procedures Date/Time Date of procedure: 05/15/19 Time of procedure: 16:48 General Procedure description: PROVIDER: Rayray Vincent DO Operative Note PREOP DIAGNOSIS 1. HNP WITH RADICULAR FEATURES, 2. MULTILEVEL CENTRAL STENOSIS, POST OP DIAGNOSIS 1. HNP WITH RADICULAR FEATURES, 2. MULTILEVEL CENTRAL STENOSIS PROCEDURES 1. FLUORSCOPICALLY GUIDED CONTRAST CONTROLLED INTERLAMINAR EPIDURAL STEROID INJECTION -L4/5 PHYSICIAN: Rayray Vincent DO INDICATIONs: Alejandra is referred by Dr. Moses for treatment of Bilateral Foraminal Stenosis R>L LE symptoms. FINDINGS Multilevel Central Spinal Stenosis with Nerve Root Compression DESCRIPTION OF PROCEDURE Fluoroscopically guided, contrast-controlled L4/5 translaminar epidural steroid injection. Following review of allergy and review of potential side effects and complications, including, but not necessarily limited to, infection, allergic reaction, local tissue breakdown, temporary as well as permanent nerve injury, paralysis, stroke and possible , the patient indicated that the patient understood and agreed to proceed. An informed consent document was signed by the patient, witnessed by a nurse, and placed in the patient's chart. Additionally, other treatment options including modalities, medications, and physical therapy were reviewed with the patient. After review of previous anaesthesic history and IV conscious sedation the patient was deemed safe to proceed with todays procedure with IV conscious sedation as ASA class II designation. Safety time-out was performed to confirm patient ID, procedure to be performed and site of procedure. IV sedation was ac complished with a combination of 2mg of Versed was administered by the RN after DO order, titrated to patient comfort during the course of the procedure while the patient remained responsive to all verbal commands In the prone position, following sterile prep and drape of the lumbar region, the L4/5 translaminar space was identified fluoroscopically. The skin was anesthetized via a 25-gauge, 1.5-inch needle with 1% lidocaine solution. At this point, a 22-gauge short bevel spinal needle was atraumatically introduced and advanced under fluoroscopic guidance into the region of the L4/5 transla minar space. Depth was confirmed on lateral view. Radiological data, including multiple fluoroscopic views of the lumbar spine, reveal a spinal needle at the L4/5 translaminar space. Lateral views then show placement of the needle in the epidural space. Subsequent views show contrast material flowing superiorly and inferiorly in the epidural space. No vascular or intrathecal uptake is observed. At this point, using loss of resistance technique with saline and air, the epidural space was entered. This was confirmed following negative aspiration with injection of approximately 1.5 cc of Isovue 200, showing excellent epidural flow without vascular or intrathecal uptake. At this point, 1 cc of 1% lidocaine solution combined with 3cc or 20mg of dexamethasone and 6mg betamethasone was injected without incident. The patient tolerated the procedure well without signs or symptoms of complications prior to transfer to the recovery area continued monitoring without incident. The patient was then transferred to the recovery area where they were observed for an appropriate period of time after the injection. The patient reported a VAS score of 6 prior to the procedure and a post- procedure VAS of 0. Total Fluoroscopy Time: 11.8 seconds, 8.99 mGy Total Conscious Sedation Time: 24min POST OP INSTRUCTIONS The patient was provided a Pain Log to continue to record their response to the target-specific procedure prior to follow-up visit with their referring physician. Additionally, specific post-injection care instructions and a contact number to our office were provided if concerns arise regarding possible complications associated with the procedure are suspected. Rayray Vincent, Complications: none
--- NOTE | 2019-05-15 18:57 | PC.NURSE ---
late entry: discharge note--VSS and O2 sat WNL post procedure. No complaints of pain. 0/10 at time of discharge. Gait steady, ambulated to discharge with friends at 1710.
== END 2019-05-15 17:10 | disposition home or self-care (01) ==
LOC: RAD 13:35
PROVIDERS: PCP Family Medicine; Visit Provider Physical Medicine & Rehabilitation
DX: M51.16 Intervertebral disc disorders with radiculopathy, lumbar region (principal); M48.061 Spinal stenosis, lumbar region without neurogenic claudication
CPT/HCPCS: 62323; 99152; J0702; J1040; J1100; J2250; J3010

== ENCOUNTER → 2019-07-03 11:54 | Outpatient (CLI) | payer MEDICARE, OTHER, SELFPAY ==
[2019-07-03 12:12] LABS: Bacteria Urine None Seen; RBC Urine None Seen (0-5/HPF)
[2019-07-03 13:07] LABS: Add Manual Diff / Slide Review NO; Basophils Absolute Auto 0 /uL (0-100); Basophils Percent Auto 0.8 % (0-2); Eosinophils Absolute Auto 200 /uL (0-450); Eosinophils Percent Auto 4.9 % (2-4); Hematocrit 38.8 % (36-46); Hemoglobin 13.1 g/dL (12.0-16.0); Lymphocytes Absolute Auto 900 /uL (1100-4500); Lymphocytes Percent Auto 17.4 % (25-40); Mean Corpuscular HGB Conc 33.7 % (30-36); Mean Corpuscular Hemoglobin 30.2 PG (26-34); Mean Corpuscular Volume 89.4 fL (80-100); Monocytes Absolute Auto 500 /uL (0-900); Monocytes Percent Auto 9.7 % (3-14); Neutrophils Absolute Auto 3400 /uL (1500-7000); Neutrophils Percent Auto 67.2 % (50-75); Platelet Count 258 X10^3/uL (150-400); Red Blood Cell Count 4.34 X10^6/uL (4.0-5.2); Red Cell Distribution Width 13.8 % (11.6-14.8)
[2019-07-03 13:10] LABS: Appearance Urine UA CLEAR; Bilirubin Urine UA NEGATIVE (NEGATIVE); Color Urine UA YELLOW; Glucose Urine UA NEGATIVE (Negative); Ketones Urine UA TRACE (NEGATIVE); Leukocyte Esterase Urine UA 1+ (NEGATIVE); Nitrite Urine UA NEGATIVE (Negative); Occult Blood Urine UA TRACE-INTACT (Negative); Protein Urine UA TRACE (Negative); Specific Gravity Urine UA 1.015 (1.000-1.035)
[2019-07-03 13:12] LABS: pH Urine UA 6.5 (4.5-8.0)
[2019-07-03 13:18] LABS: Hemoglobin A1C% w Est Avg Glu 5.8 % (4.0-6.0)
[2019-07-03 13:39] LABS: Amorphous Sediment Urine 2+; Calcium Oxalate Crystals Urine Moderate; Renal Epithelial Cells Urine 1-5/HPF (0-1/HPF); Squamous Epithelial Cell Urine 1-5 /HPF (0-5/HPF); WBC Urine 5-10/HPF (0-5/HPF)
[2019-07-03 14:20] LABS: Blood Urea Nitrogen 16 mg/dL (7-17); Calcium 9.9 mg/dL (8.4-10.2); Carbon Dioxide 31 mmol/L (22-32); Chloride 106 mmol/L (98-107); Estimated Glomerular Filt Rate > 60.0 mL/min (>60); Glucose 95 mg/dL (80-110); HEMOLYSIS < 15 (0-50); Potassium 4.8 mmol/L (3.4-5.1); Sodium 142 mmol/L (137-145)
[2019-07-03 14:46] LABS: Thyroid Stimulating Hormone 0.55 uIU/mL (0.47-4.68)
== END ==
PROVIDERS: PCP Family Medicine; Visit Provider Physician Assistant
DX: R73.9 Hyperglycemia, unspecified (principal); N39.0 Urinary tract infection, site not specified; Z01.818 Encounter for other preprocedural examination; E03.9 Hypothyroidism, unspecified
CPT/HCPCS: 36415; 80048; 81001; 83036; 84443; 85025

== ENCOUNTER 2019-07-31 10:09 | Observation (INO) | payer MEDICARE, OTHER, SELFPAY ==
[2019-07-31] VITALS (11 sets, daily range): BP systolic 89–122; BP diastolic 41–70; PULSE 70–86; RESP 14–18; TEMP 35.8–36.6; O2SAT 94–100
--- NOTE | 2019-07-31 | DI.RAD.S_ITS ---
PROCEDURE: XR PELVIS 1-2V INDICATIONS: INTER OP TECHNIQUE: Intra-operative view of the pelvis and hip acquired. COMPARISON: [facility], CR, XR PELVIS WITH BILATERAL LATERAL HIPS, 03/30/2019, 13:49. FINDINGS: Bones: Intraoperative devices prior to placement of arthroplasty prostheses are in expected positions for a left hip arthroplasty. No fractures or suspicious bony lesions. Soft tissues: Overlying surgical retractors are present, along with other intraoperative changes. IMPRESSION: Normal intraoperative examination. Dictated by: Darwin Diego M.D. on 07/31/2019 at 14:44 Approved by: Darwin Diego M.D. on 07/31/2019 at 14:45
--- NOTE | 2019-07-31 06:00 | DI.RAD.S_ITS ---
PROCEDURE: XR HIP W PEL IF DONE LT 2V INDICATIONS: post operative total left hip TECHNIQUE: AP pelvis with lateral view(s) of the left hip(s). COMPARISON: [facility], , HIP 2V RIGHT, 11/06/2014, 16:21. FINDINGS: Bones: No fractures or dislocations. Pelvic ring appears intact. No suspicious bony lesions. Expected postoperative alignment a left hip arthroplasty. Right hip arthroplasty also noted Soft tissues: The visualized bowel gas pattern is normal. No suspicious soft tissue calcifications. IMPRESSION: Expected postoperative alignment Dictated by: Buzz Carson M.D. on 07/31/2019 at 17:57 Approved by: Buzz Carson M.D. on 07/31/2019 at 17:58
[2019-07-31] MEDS: LACTATED RINGERS 1,000 ML 42 ML IV ×2 (10:50→13:42)
[2019-07-31] MEDS: PREGABALIN 75 MG CAPSULE PO (10:55)
[2019-07-31] MEDS: ACETAMINOPHEN 325 MG TABLET 975 MG PO (10:55)
[2019-07-31] MEDS: CELECOXIB 200 MG CAPSULE PO (10:55)
[2019-07-31] MEDS: VANCOMYCIN 1,000 MG/200 ML PIGGYBACK 200 MG IV (11:13)
--- NOTE | 2019-07-31 11:30 | P.OP_ITS ---
Operative Date/Time/Diagnoses Date of procedure: 07/31/19 Time of procedure: 11:59 Pre-op diagnosis: left hip OA Post-op diagnosis: same Procedure & Clinicians Procedure: Left total hip arthroplasty anterior Same procedure as scheduled: Yes Indications: The patient has had progressively worsening left hip pain with radiographic changes consistent with arthritis. Non-operative management has failed and the patient has requested total hip replacement. The risks, benefits and alternatives to surgery were discussed with the patient prior to proceeding. Risks discussed included, but were not limited to, failure to relieve pain, leg length discrepancy, dislocation, stiffness, infection, nerve damage, deep venous thrombosis, pulmonary embolism, stroke, coma, heart attack, permanent paralysis and , as well as the potential need for eventual revision of the prosthetic. Surgeon: Kyra Ronquillo Electrical Technician: Seda Bloom Anesthesia Type: General and Spinal Operative Notes Findings: Severe left hip arthritis, good stability Closure Type: primary Specimen(s): none sent Prosthetic devices, grafts, tissues, transplants, or devices: Ronquillo and Nephew 58 mm R3 cup, neutral poly liner, size 7 standard offset anthology, -3 head Estimated Blood Loss (mL): 250 Blood products transfused: none Procedure in detail: The patient was brought to the operating room. Patient was carefully positioned in the supine position. Time-out was performed and antibiotics were given. Anesthesia was induced. She was positioned in the on the table in order to allow hyperextension of the hip. The left lower extremity was prepped and draped in a standard sterile fashion. An anterior left hip incision was made 1 fingerbreadth lateral to the anterior superior iliac spine and extended distally towards the greater trochanter. Dissection was carried out through skin and subcutaneous tissues. The skin and subcutaneous tissues were carefully injected with Lidocaine with epi. Superficial hemostasis was achieved. The fascia over the tensor fascia brown was defined and incised with a knife. Two Allis clamps were used to grasp the fascia. Tensor fascia brown was retracted laterally. A gelpi retractor was placed. Dissection was carried out down along the neck. The circumflex vessels were carefully identified and cauterized with the Aqua Mantis. There was good visualization of the femoral neck. A Cobra was placed superior to the neck and the gluteus fibers were carefully stripped from that superior aspect of the capsule. A 2nd retractor was placed along the inferior aspect of the neck. The rectus insertion along the capsule was partially released. A 3rd retractor that was then gently placed over the rim of the acetabulum under the rectus. Capsule was carefully incised and released from the intertrochanteric line circumferentially superior to the mid sagittal line and inferiorly to the mid sagittal line until the lesser trochanter was palpable. A tag stitch was placed both in the superior and inferior limb of the capsular insertion. Along the acetabulum capsule was also released up to the mid sagittal 12:00 position. A portion of the labrum was resected. A saw was used to perform an osteotomy at the level of the intertrochanteric line and the junction of the superior femoral neck leaving approximately 1 finger breath of residual inferior neck above the lesser trochanter. A 2nd cut was made along the femoral neck at the base of the head and a napkin ring of neck was removed. Corkscrew was placed in the femoral head and the head was removed without difficulty. Retractors were then repositioned around the acetabulum. Residual labrum was resected and additional osteophytes were removed. A reamer that was 4 mm below the templated size was placed by hand in the acetabulum and it was reamed to centralize the acetabulum. It was then reamed up to 2 under the templated size and fluoroscopy was brought in to confirm the position of the reaming and depth of reaming. I reamed 1 under the anticipated size and touched the rim with line to line reaming. A trial cup was placed and noted that it was appropriately sized and fluoroscopy confirmed position and depth. The component was open and inserted without difficulty fluoroscopic imaging was used to confirm that the cup had been adequately seated and was well positioned. Neutral poly trial liner was placed. The cup was tested and noted to be stable. Attention was then directed to the femur. The femur was gently hyperextended additional capsular release was performed as needed in order to allow adequate visualization of the proximal femur with elevation of the femur. Patient was placed in a hyperextended slightly adducted position with maximum external rotation. Box osteotome was used to check for any residual neck as well as sclerotic bone along the trochanter. [place] pepper was placed in the femur. Additional broaching was performed. Canal finder was used to determine the alignment of the canal and position. Size 1 broach was placed. The canal was then appropriately broached up to the templated size as long as there was adequate stability of the broach and serial advancement of the broach without excessive impingement. Specific attention was directed at avoiding varus attempting to direct the distal aspect of the broach more anteriorly and avoiding excessive anteversion. Trial reduction showed acceptable range of motion, good stability, no posterior impingement, christianity of leg length and appropriate lateral shuck. I also hyperflexed the hip and checked that there was no impingement anteriorly and there was good stability with flexion, adduction and internal rotation. Final neutral poly was placed without difficulty. Marcaine and Exparel were injected.. The stem was placed without difficulty. Repeat trial reduction and x-ray showed acceptable overall position, length, and no evidence of the femoral fracture. Final head was placed. Wound was meticulously irrigated with normal saline. The hip was reduced and additional Exparel and Marcaine were injected. The capsule was closed with interrupted nonabsorbable sutures. The fascia of the tensor was closed with interrupted and running Vicryl. No drain was placed. Any tensor fascia brown muscle that appeared to be contused or injured which was a minimal amount was carefully resected. Capsule around the tensor was injected with Exparel and Marcaine. The skin was closed with barbed stitches for the subcutaneous tissue and skin. We also used surgical glue. The wound was dressed sterilely. Brief Betadine soak was also used and was meticulously irrigated with normal saline. Patient was transferred to recovery room in satisfactory condition. Complications: none Post-operative Condition: stable Disposition: Acute Care Plan for aftercare: The patient will be maintained on a standard total hip replacement protocol with weight bearing as tolerated and anterior hip precautions. The patient will receive Aspirin and sequential compression devices for DVT prophylaxis. The patient will be discharged home when safe for the home environment.
--- NOTE | 2019-07-31 11:30 | PM.PREOP ---
Pre-operative Note Interval Note History & Physical reviewed/Exam performed by Physician: Yes Changes to H&P: No
[2019-07-31] MEDS: CEFAZOLIN 2 GM/100 ML FROZ.PIGGY IV ×2 (12:20→20:57)
[2019-07-31] MEDS: TRANEXAMIC ACID 1,000 MG VIAL 1000 MG INJ ×2 (12:40→14:58)
--- NOTE | 2019-07-31 13:00 | SUR.OPER ---
Supine on padded [place] table with bilateral legs secured in padded positioning boots and suspended in positioning spars, operative leg in traction per surgeon. Head on one pillow. Arm on non-operative side secured on padded armboard <90 degrees abduction. Arm on operative side padded and resting across chest then secured with tape over sheet. Padded perineal post in place per surgeon.
[2019-07-31] MEDS: BUPIVACAINE 0.25% W/ EPI 30 ML VIAL 60 ML INJ (13:10)
[2019-07-31] MEDS: BUPIVACAINE LIPOSOME 266 MG/20 ML VIAL INJ (13:10)
[2019-07-31] MEDS: SODIUM CHLORIDE IRRIG SOLUTION 250 ML, POVIDONE-IODINE SPONGE STICKS 1 APPLIC IRR (13:13)
[2019-07-31] MEDS: LACTATED RINGERS 1,000 ML 125 ML IV (16:52)
[2019-07-31] MEDS: ASPIRIN EC 81 MG TABLET PO (20:56)
[2019-07-31] MEDS: DOCUSATE 100 MG CAPSULE PO (20:56)
[2019-07-31] MEDS: ACETAMINOPHEN 325 MG TABLET 650 MG PO (20:56)
[2019-07-31] MEDS: SERTRALINE 25 MG TABLET 75 MG PO (20:57)
[2019-07-31] MEDS: IBUPROFEN 400 MG TABLET PO (20:57)
--- NOTE | 2019-07-31 23:15 | PC.NURSE ---
Post op day 1 left anterior hip replacement. A/Ox4 but seems to talk in circles. No complaints of pain. Due to void by 1am. Patient room air now. Vitals stable. Bed alarm on, call light within reach.
[2019-08-01 00:05] VITALS: BP 107/64; PULSE 75; RESP 20; TEMP 36.3; O2SAT 93
[2019-08-01] MEDS: LACTATED RINGERS 1,000 ML 125 ML IV (00:13)
--- NOTE | 2019-08-01 00:28 | PC.NURSE ---
Addendum entered by Theresa Davis R.N. 08/01/19 06:22: Continues to deny pain. Has been up to BSC with walker and 1 assist and able to urinate earlier. Moving self in bed. Original Note: Patient is alert and oriented although some delay in responses at times; did not have correct day of month. Breath sounds CTA with RA sat of 97%. HRR. Denies nausea. BT present and is passing flatus. Has not voided since return from surgery so assisted to BSC with 1 assist + walker but was unable to void so will evaluate with bladder scan. Is able to move self in bed. CMS is intact. Denies pain. Dressing to left anterior hip is CDI. Wearing bilateral calf SCD's. Fall risk score is moderate and bed alarm is activated.
[2019-08-01] MEDS: IBUPROFEN 400 MG TABLET PO ×4 (00:35→12:37)
[2019-08-01] MEDS: CEFAZOLIN 2 GM/100 ML FROZ.PIGGY IV (04:35)
[2019-08-01 04:55] VITALS: BP 119/55; PULSE 69; RESP 20; TEMP 36.6; O2SAT 100
[2019-08-01] MEDS: LEVOTHYROXINE 50 MCG TABLET PO (06:19)
[2019-08-01 08:30] VITALS: BP 106/61; PULSE 76; RESP 16; TEMP 36.7; O2SAT 99
--- NOTE | 2019-08-01 08:52 | P.PN_ITS ---
Subjective Subjective Date Patient Seen: 08/01/19 Time Patient Seen: 08:52 Interval history: Postop day 1 status post left total hip arthroplasty with Dr. Ronquillo. Patient has had minimal complaints of pain. No complaints this morning. Her friend has flown in from [place] to stay with her for the next 2 weeks. She is eating and voiding without difficulty or assistance. Exam Vital Signs (past 8 hours): - 08/01/19 04:55 Temperature 97.8 F Pulse Rate 69 Respiratory Rate 20 Blood Pressure 119/55 L Pulse Oximetry 100 Oxygen Delivery Method Room Air Oxygen Flow Rate 0 Narrative Exam Narrative: Patient is sitting in bedside chair no acute distress. She is alert oriented x3. Calves are soft, compressible, nontender bilaterally. She is able to actively dorsiflex and plantar flex. Pulses are symmetrical. Dressing is CDI. Assessment & Plan Post-op Postoperative Procedures: Procedures Operation Date: 07/31/19 12:15 Actual Procedures Side Surgeon p Total Hip Arthroplasty/Anterior Approach Left Kyra Ronquillo MD patient will mobilize with physical therapy today. She will follow anterior hip precautions. We discussed at length medications after surgery. She will take an ASA 81 mg b.i.d. for DVT prophylaxis. Leave dressing on until appointment. Patient will likely discharge home today with her friend as long a s she is mobilizing safely with adequate pain control.
--- NOTE | 2019-08-01 09:30 | PT.IIE ---
Current Diagnoses Unilateral primary osteoarthritis, left hip (07/31/19) Surgery Performed Operation Date: 07/31/19 12:15 Actual Procedures p Total Hip Arthroplasty/Anterior Approach(Left) - Kyra Ronquillo MD Surgical History (Last Updated 07/16/19 @ 13:10 by Iris Parikh RN) Anesthesia (Resolved) History of detached retina repair (Resolved 1992) History of detached retina repair (Resolved 1985) History of hip replacement (Resolved 2009) History of left mastectomy (Acute ~2013) History of shoulder surgery (Resolved) History of sinus surgery (Resolved 1986) History of sinus surgery (Resolved 1988) History of sinus surgery (Resolved 1992) Medical History (Last Reviewed 05/28/19 @ 09:45 by MORGAN Cartwright) Acquired hypothyroidism (Chronic 02/08/17) Breast cancer (Resolved 2013) Cataract (Resolved) Chronic back pain (Chronic 1984) Complete rotator cuff tear of left shoulder (Chronic) Foraminal stenosis of lumbosacral region (Chronic) Hayfever (Chronic 1980) Hearing loss (Chronic) Hx of breast cancer (Chronic) Lumbar facet arthropathy (Chronic) Lumbar spinal stenosis (Chronic) Melanoma (Resolved) Mumps (Resolved 1955) Osteoporosis (Chronic) Recurrent major depressive disorder, in full remission (Chronic 02/08/17) Retinal detachment (Resolved) Rheumatoid arthritis (Chronic 193) Scoliosis (and kyphoscoliosis), idiopathic (Chronic) Shoulder pain (Chronic 1997) Thyroid nodule (Resolved ~1979) Tuberculosis (Resolved) Physical Therapy Inpatient Evaluation/Re-Eval M1 PT/OT-IP Prior Functional Status Start: 08/01/19 14:36 Freq: NEEDED Status: Active Protocol: Document 08/01/19 09:30 AB (Rec: 08/01/19 14:53 AB [id number]) Medical Review Prior Functional Status Medical History Reviewed Yes Communication able to make needs known Mobility and Gait pt stated that she is indpeendnet with all mobilities and ambulation using SPC Social History Household Members none Living Arrangements House Number of Floors (Floors) Two Floors Number of Stairs To Enter/Railing? pt will stay on the main level of the house but if going upstairs to bedroom : has 14 steps with L rail ascending has a ramp and 1 step to enter the house pt's friend from [place] will stay with pt for ~ 2 weeks to assist her Home Environment High Toilet,Walk in Shower, Ramp Home Equipment Front Wheel Walker,Straight Cane,Shower Seat without Backrest,Hand Held Shower,Grab Bars Near Toilet Additional Social History Comment pt stated that she has an adjustable bed M2 PT-IP Current Condition Start: 08/01/19 14:36 Freq: NEEDED Status: Active Protocol: Document 08/01/19 09:30 AB (Rec: 08/01/19 14:53 AB [id number]) Physical Therapy Current Condition Current Condition Evaluation Date 08/01/19 Treatment Diagnosis s/p L CLIFFORD anterior approach; difficulty in walking Onset Date 07/31/2019 Precautions Anterior Hip Precautions No Hip Extension,No Hip External Rotation Weight Bearing Status Weight Bearing Status Weight Bear as Tolerated Allowed Weight Bearing Amount (enter % LLE WBAT or #) (%) M3 PT-IP Subjective Start: 08/01/19 14:36 Freq: NEEDED Status: Active Protocol: Document 08/01/19 09:30 AB (Rec: 08/01/19 14:53 [id number]) Subjective Physical Therapy Visit Type Type Initial Evaluation Visit Start Time 09:30 Visit Stop Time 10:27 Total Visit Minutes 57 Number of ANDROID FRAMEWORK DEVELOPER Visits 0 Physical Therapy Visit Comments Patient Comments pt agreeable to do PT Therapy Pain Assessment Pain When Pain Assessed During Mobility Location Left Hip Intensity 5 Scale Used Numeric (1 - 10) Pain Behaviors Facial Grimacing,Guarding, Wincing Pain Management Techniques Timing of Activity with Medications M4 PT-IP Mobility and Gait Start: 08/01/19 14:36 Freq: NEEDED Status: Active Protocol: Document 08/01/19 09:30 AB (Rec: 08/01/19 14:53 [id number]) PT-Bed Mobility Assessment Supine to Sit Supine to Sit Standby Assistance,1 Person Assistance Sit to Supine Sit to Supine Standby Assistance,1 Person Assistance Scooting Scooting to Edge of Bed Standby Assistance PT-Transfer Assessment Sit to and From Stand Sit to and from Stand Standby Assistance,Contact Guard Assistance,1 Person Assistance,Use of Upper Extremities Equipment Transfer Assistive Device Gait Belt,Front Wheeled Walker Orthotic/Prosthetic Devices or Brace: No Transfers Transfer Destination Bed,Chair Transfer Technique ambulated using FWW Transfer Ability Level of Assist Contact Guard Assistance,1 Person Assistance,Use of Upper Extremities Comments Mobility Comments reviewed anterior hip precautions with pt and pt requires max cues to recall and unable to recall after education and repetition provided. pt completed sit to stand CGA and ambulated to the bed using FWW CGA and cues . completed supine <>sit SBA and cues. pt ambulated in the hallway using FWW SBA to CGA ~ 200 ft and cues for safety and maintaining hip precautions. pt completed up/ down platform step using FWW CGA and max cues for techniques. pt assisted back to her room. ambulated using FWW to the chair SBA. positioned pt on the chair. call light and table placed within reach. informed nurse that caregiver training needed to be completed prior to d/c and also OT eval due to pt's decrease memory and carryover of hip precautions. Gait Assessment Gait Gait Assistance Required: Standby Assistance,Contact Guard Assist Distance (Feet) 200 Able to Maintain Weight Bearing Status Yes During Gait Assistive Devices Assistive Device Gait Belt,Front Wheeled Walker Orthotic/Prosthetic Devices or Brace: No Gait Deviations General Gait Pattern Antalgic Factors Limiting Gait Function Factors Limiting Gait Function Decreased Activity Tolerance, Decreased Strength,Limited Range of Motion,Pain,Poor Balance,Poor Safety Awareness Comments Gait Comments pls refer to mobility section for details Stair Climbing Assessment Evaluation Level of Assist On Stairs Contact Guard Assistance Devices Stair Climbing Assistive Devices Front Wheel Walker Technique/Endurance Stair Climbing Direction Ascend and Descend Stair Climbing Technique Step to Step Number of Steps Climbed 1 Query Text: Stair Climbing Set # Repetitions (reps) 2 PT-Balance Assessment Sitting Balance and Reactions Static Sitting Balance Ability Good Dynamic Sitting Balance Ability Good Standing Balance and Reactions Static Standing Balance Ability Fair Dynamic Standing Balance Ability Fair Device Used FWW M5 PT-IP Objective Assessments Start: 08/01/19 14:36 Freq: NEEDED Status: Active Protocol: Document 08/01/19 09:30 AB (Rec: 08/01/19 14:53 AB [id number]) Orientation Orientation/Cognition Level of Alertness Alert Orientation Name,Place,Situation Safety Awareness Decreased Safety Awareness Memory Description Short Term Impaired Gross Range of Motion Lower Extremity ROM Assessment Within Functional Limits Strength Lower Extremity Strength Assessment Left Impaired Hip 3-/5 Knee 4-/5 Coordination Assessment Gross Coordination Gross Coordination WNL Sensation Assessment Sensation Gross Sensation WNL Muscle Tone Muscle Tone WNL Yes M6 PT-IP Treatment Start: 08/01/19 14:36 Freq: NEEDED Status: Active Protocol: Document 08/01/19 09:30 AB (Rec: 08/01/19 14:53 AB [id number]) Physical Therapy Treatment Education Education Provided Precautions,Weight Bearing Status,Post-Op Packet,Safety M7 PT-IP Assessment and Plan Start: 08/01/19 14:36 Freq: NEEDED Status: Active Protocol: Document 08/01/19 09:30 AB (Rec: 08/01/19 14:53 [id number]) PT Summary Assessment and Plan Potential Rehabilitation Potential Good Status of Condition at Evaluation Stable Summary Impairments Pain,ROM,Strength,Balance, Coordination,Sensation,Tone, Cognition,Bed Mobility, Transfers,Gait,Activity Tolerance Assessment Summary pt requiring SBA to CGA with mobility but unable to recall and carryover her hip precautions during mobility and needs cues. pt plans to go home and her friend will stay with her for 2 weeks. will need to conduct caregiver training and stair training prior to d/c Goals Bed Mobility Goal Independent Transfer Goal Independent,Front Wheeled Walker Gait Goal Independent,Front Wheel Walker Gait Distance 250 Other Goals up/down 1 step using FWW SBA Days to Meet Goals 5 Frequency of Treatment Frequency Of Treatment Twice a Day Treatment Plan Physical Therapy Treatment Plan Bed Mobility Training,Transfer Training,Gait Training, Therapeutic Exercise,Balance Retraining,Post Op Education, Discharge Planning,Hot or Cold Pack,Neuromuscular Re-ed, Coordination Retraining,Manual Therapy Recommendations To Nursing Amount of Assist Needed 1 Person Assist Discharge Recommendations PT Discharge Recommendations Home with 28/01 Assist, Outpatient PT Transportation Needs at Discharge Private Vehicle
[2019-08-01] MEDS: DOCUSATE 100 MG CAPSULE PO (09:58)
[2019-08-01] MEDS: ASPIRIN EC 81 MG TABLET PO (09:58)
[2019-08-01] MEDS: ACETAMINOPHEN 325 MG TABLET 650 MG PO ×2 (09:59→14:03)
[2019-08-01] MEDS: CHOLECALCIFEROL (VITAMIN D3) 5,000 UNIT TABLET 5000 UNIT PO (09:59)
[2019-08-01 12:36] VITALS: BP 86/46; PULSE 73; RESP 16; TEMP 37.2; O2SAT 99
--- NOTE | 2019-08-01 13:39 | PT.IPTN ---
Current Diagnoses Unilateral primary osteoarthritis, left hip (07/31/19) Surgery Performed Operation Date: 07/31/19 12:15 Actual Procedures p Total Hip Arthroplasty/Anterior Approach(Left) - Kyra Ronquillo MD Physical Therapy Treatment Note M2 PT-IP Current Condition Start: 08/01/19 14:36 Freq: NEEDED Status: Active Protocol: Document 08/01/19 09:30 AB (Rec: 08/01/19 14:53 AB [id number]) Physical Therapy Current Condition Current Condition Evaluation Date 08/01/19 Treatment Diagnosis s/p L CLIFFORD anterior approach; difficulty in walking Onset Date 07/31/2019 Precautions Anterior Hip Precautions No Hip Extension,No Hip External Rotation Weight Bearing Status Weight Bearing Status Weight Bear as Tolerated Allowed Weight Bearing Amount (enter % LLE WBAT or #) (%) M3 PT-IP Subjective Start: 08/01/19 14:36 Freq: NEEDED Status: Active Protocol: Document 08/01/19 13:39 AB (Rec: 08/01/19 15:05 AB [id number]) Subjective Physical Therapy Visit Type Type Treatment Note Visit Start Time 13:39 Visit Stop Time 14:13 Total Visit Minutes [address] REGISTRY OFFICER Visits 0 Physical Therapy Visit Comments Patient Comments pt agreeable to do PT; pt's friend in room for caregiver training Therapy Pain Assessment Pain When Pain Assessed During Mobility Pain Present Pain Present Pain Reported Location Left Hip Intensity 5 Scale Used Numeric (1 - 10) Pain Management Techniques Timing of Activity with Medications M4 PT-IP Mobility and Gait Start: 08/01/19 14:36 Freq: NEEDED Status: Active Protocol: Document 08/01/19 13:39 AB (Rec: 08/01/19 15:05 AB [id number]) PT-Transfer Assessment Sit to and From Stand Sit to and from Stand Standby Assistance Equipment Transfer Assistive Device Gait Belt,Front Wheeled Walker Orthotic/Prosthetic Devices or Brace: No Comments Mobility Comments educated caregiver on how to use safety belt and how to assist pt. caregiver was able to assist pt with sit to stand, transfers and ambulation using FWW. pt ambulated towards the stairs using FWW SBA. pt and friend clarified and stated that she does not have any steps to get into the house and just a ramp. friend confirmed but stated that pt has steps to get into 2nd level bedroom with L rail. pt stated that she will not go upstairs for awhile but friend wants pt to be trained while here in the hospital. pt educated on how to do stair using 1 rail with pt holding on to L rail with B hands. pt completed with PT assisting first requiring CGA and cues and then friend assisted pt and completed safely. pt assisted back to room. pt ambulated to the chair using FWW SBA. positioned pt on the chair. Left pt with her friend with her. Gait Assessment Gait Gait Assistance Required: Standby Assistance Distance (Feet) 200 Able to Maintain Weight Bearing Status Yes During Gait Assistive Devices Assistive Device Gait Belt,Front Wheeled Walker Orthotic/Prosthetic Devices or Brace: No Gait Deviations General Gait Pattern Antalgic Factors Limiting Gait Function Factors Limiting Gait Function Decreased Activity Tolerance, Decreased Strength,Limited Range of Motion,Pain,Poor Balance,Poor Safety Awareness Comments Gait Comments pls refer to mobility section Stair Climbing Assessment Evaluation Level of Assist On Stairs Contact Guard Assistance,1 Person Assistance Devices Stair Climbing Assistive Devices Left Railing Technique/Endurance Stair Climbing Direction Ascend and Descend Stair Climbing Technique Step to Step Number of Steps Climbed 3 Stair Climbing Set # Repetitions (reps) 2 Comments Stair Climbing Comments pls refer to mobility section M5 PT-IP Objective Assessments Start: 08/01/19 14:36 Freq: NEEDED Status: Active Protocol: Document 08/01/19 09:30 AB (Rec: 08/01/19 14:53 AB [id number]) Orientation Orientation/Cognition Level of Alertness Alert Orientation Name,Place,Situation Safety Awareness Decreased Safety Awareness Memory Description Short Term Impaired Gross Range of Motion Lower Extremity ROM Assessment Within Functional Limits Strength Lower Extremity Strength Assessment Left Impaired Hip 3-/5 Knee 4-/5 Coordination Assessment Gross Coordination Gross Coordination WNL Sensation Assessment Sensation Gross Sensation WNL Muscle Tone Muscle Tone WNL Yes M6 PT-IP Treatment Start: 08/01/19 14:36 Freq: NEEDED Status: Active Protocol: Document 08/01/19 13:39 AB (Rec: 08/01/19 15:05 AB [id number]) Physical Therapy Treatment Education Education Provided Precautions,Weight Bearing Status,Safety M7 PT-IP Assessment and Plan Start: 08/01/19 14:36 Freq: NEEDED Status: Active Protocol: Document 08/01/19 13:39 AB (Rec: 08/01/19 15:05 AB [id number]) PT Summary Assessment and Plan Potential Rehabilitation Potential Good Summary Impairments Pain,ROM,Strength,Balance, Coordination,Sensation,Tone, Cognition,Bed Mobility, Transfers,Gait,Activity Tolerance Assessment Summary caregiver training conducted and pt's friend was able to assist pt and cue appropriately. pt plans to go home this afternoon. Goals Bed Mobility Goal Independent Transfer Goal Independent,Front Wheeled Walker Gait Goal Independent,Front Wheel Walker Gait Distance 250 Other Goals up/down 1 step using FWW SBA Days to Meet Goals 5 Frequency of Treatment Frequency Of Treatment Twice a Day Treatment Plan Physical Therapy Treatment Plan Bed Mobility Training,Transfer Training,Gait Training, Therapeutic Exercise,Balance Retraining,Post Op Education, Discharge Planning,Hot or Cold Pack,Neuromuscular Re-ed, Coordination Retraining,Manual Therapy Recommendations To Nursing Amount of Assist Needed 1 Person Assist Discharge Recommendations PT Discharge Recommendations Home with 28/01 Assist, Outpatient PT Transportation Needs at Discharge Private Vehicle
--- NOTE | 2019-08-01 14:50 | CM.DANOTE ---
Discharge Planning/Care Management DCP: assessment: case received, EMR reviewed and discussed POC this morning with ortho ZAK Del [place]. She noted that she had put in a DC to home order but this would be pending PT clearance. She noted that is pt needed to stay on for more PT tomorrow before home that would be fine. Met now with pt and her friend Vicki: [phone]. Introduced self and role. Vicki has arrived from [place] with intent to stay with pt for a couple of weeks to help her in her recovery. Vicki appears strong, capable and younger than pt. OT Kennedi was in process of caregiver training and confirms all going well and that pt will be going home this afternoon. Pt and Vicki agree that they feel comfortable with this plan. Pt is an 78 year old female who admitted yesterday for a planned L CLIFFORD/Anterior approach. Surgeon: Dami Ronquillo PCP: Dr. Moses Payer: Medicare and [employer]. Admission status: SDC: confirmed by UR SIGRID Matute. SIGRID Luo confirms that pt will d/c after her therapy session and he notes no concerns on his end er the d/c for today. P: home with Vicki's supportive assist Advanced directive, confirm from FAMILY Start: 07/31/19 17:23 Freq: Q24H Status: Active Protocol: Document 07/31/19 17:23 AK (Rec: 07/31/19 19:21 AK [id number]) Advance Directive, confirm on record Time 19:21 Person contacted Family friend Copy received No CM Discharge Assessment Start: 08/01/19 14:49 Freq: Status: Active Protocol: Document 08/01/19 14:49 ITV (Rec: 08/01/19 14:50 ITV [id number]) Discharge Planning Assessment Advance Directives? Yes Advance Directives on File Yes History Provided By Patient,Family Member,Medical Record Prior Living Arrangements House Household Members none Independent with ADL's Yes Is patient alert and oriented? Yes Review Status In Process Pre-Anesthesia Assessment Start: 07/16/19 13:00 Freq: Status: Complete Protocol: Document 07/16/19 13:01 CAB (Rec: 07/16/19 13:17 CAB [id number]) Pre-Anesthesia Assessment PAC Comment Unable to reach pt for scheduled PAC phone assessment , fast busy signal, unable to connect. Chart review only Patient Information Reviewed Via Chart Review H&P Completed Within 30 Days Yes Diagnostic Results BMP/CMP,CBC,EKG,Urinalysis Comment EKG 05/11/19, Labs 07/03/19 @ Primary Care Provider Cheryl Moses Seen Specialist in Last 12 Months Yes Specialist Seen Orthopedist Primary Language Sammarinese Patient Educator Required No Height 177.8 cm Weight 63.503 kg Body Mass Index (BMI) 20.0 Visual Assist Glasses Hx Anesthesia Reactions No Anesthesia Review Requested No Smoking Status Former smoker Substance Use Type does not use Pain Present Pain Reported Musculoskeletal Symptoms Difficulty Walking,Joint Pain History of Falling (Recent or History of Yes ) Patient is completely paralyzed or No completely immobile Mental Status Oriented to own ability Is patient on oxygen? No Hx Sleep Apnea No Currently Taking a Beta Tong No Anti-Coagulant Therapy No Has a Facility Engineer No Cardiac Testing No Hx Pacemaker/ICD No Pacemaker Rep Required? No Cardiac Clearance Received Not Applicable Urinary Catheter Present No Hx Urinary Self Catheterization No Diabetes No HgbA1C 5.8 Date 07/03/19 Patient No Lactating No Presence of External or Internal Medical Yes: Right hip prosthesis Devices Marital Status / Lives With none Patient Discharge Plan Description Return Home Advance Directives? Yes Advance Directives on File Yes
--- NOTE | 2019-08-01 15:10 | OT.IP.EVAL ---
Current Diagnoses Unilateral primary osteoarthritis, left hip (07/31/19) Surgery Performed Operation Date: 07/31/19 12:15 Actual Procedures p Total Hip Arthroplasty/Anterior Approach(Left) - Kyra Ronquillo MD Past Medical History (Last Reviewed 05/28/19 @ 09:45 by MORGAN Cartwright) Acquired hypothyroidism (Chronic 02/08/17) Breast cancer (Resolved 2013) Cataract (Resolved) Chronic back pain (Chronic 1984) Complete rotator cuff tear of left shoulder (Chronic) Foraminal stenosis of lumbosacral region (Chronic) Hayfever (Chronic 1980) Hearing loss (Chronic) Hx of breast cancer (Chronic) Lumbar facet arthropathy (Chronic) Lumbar spinal stenosis (Chronic) Melanoma (Resolved) Mumps (Resolved 1955) Osteoporosis (Chronic) Recurrent major depressive disorder, in full remission (Chronic 02/08/17) Retinal detachment (Resolved) Rheumatoid arthritis (Chronic 1938) Scoliosis (and kyphoscoliosis), idiopathic (Chronic) Shoulder pain (Chronic 1997) Thyroid nodule (Resolved ~1979) Tuberculosis (Resolved) Surgical History (Last Updated 07/16/19 @ 13:10 by Iris Parikh RN) Anesthesia (Resolved) History of detached retina repair (Resolved 1992) History of detached retina repair (Resolved 1985) History of hip replacement (Resolved 2009) History of left mastectomy (Acute ~2013) History of shoulder surgery (Resolved) History of sinus surgery (Resolved 1986) History of sinus surgery (Resolved 1988) History of sinus surgery (Resolved 1992) Occupational Therapy Inpatient Evaluation/Re-Eval M1 PT/OT-IP Prior Functional Status Start: 08/04/19 18:59 Freq: NEEDED Status: Active Protocol: Document 08/01/19 14:24 [facility] (Rec: 08/04/19 19:19 [facility] [id number]) Medical Review Prior Functional Status Medical History Reviewed Yes Communication able to make needs known Mobility and Gait pt stated that she is indpendnet with all mobilities and ambulation using SPC Activities of Daily Living and IADL's COmpletely independent with all Adl and IADL needs. Social History Household Members none Living Arrangements House Number of Floors (Floors) Two Floors Number of Stairs To Enter/Railing? pt will stay on the main level of the house but if going upstairs to bedroom : has 14 steps with L rail ascending has a ramp and 1 step to enter the house pt's friend from [place] will stay with pt for ~ 2 weeks to assist her Home Environment High Toilet,Walk in Shower, Ramp Home Equipment Front Wheel Walker,Straight Cane,Shower Seat without Backrest,Hand Held Shower,Grab Bars Near Toilet Additional Social History Comment pt stated that she has an adjustable bed M2 OT-IP Current Condition Start: 08/04/19 18:59 Freq: Status: Active Protocol: Document 08/01/19 14:24 [facility] (Rec: 08/04/19 19:19 [facility] [id number]) Occupational Therapy Current Condition Current Condition Evaluation Date 08/01/19 Treatment Diagnosis s/p L CLIFFORD Diagnosis Onset Date 07/31/19 Post Operative Precautions Anterior Hip Precautions No Hip Extension,No Hip External Rotation Weight Bearing Status Weight Bearing Status Weight Bear as Tolerated M3 OT- IP Subjective and Pain Start: 08/04/19 18:59 Freq: Status: Active Protocol: Document 08/01/19 14:24 [facility] (Rec: 08/04/19 19:19 [facility] [id number]) OT- Subjective Occupational Therapy Visit Type Type Initial Evaluation Visit Start Time 14:24 Visit Stop Time 15:10 Total Visit Minutes 46 Occupational Therapy Visit Comments Patient Comments Pt cooperative and friend from [place] present for caregiver training. Per friend to stay with her for two weeks. Patient/Caregiver Goals To go home. OT Pain Assessment Pain When Pain Assessed At Rest Pain Present Pain Present Denied Pain M4 OT- IP ADL's Start: 08/04/19 18:59 Freq: Status: Active Protocol: Document 08/01/19 14:24 [facility] (Rec: 08/04/19 19:19 [facility] [id number]) OT [id number] General Evaluation Self-Feeding Ability Independent OT ADL-Grooming General Evaluation Grooming Ability Standby Assistance Areas Needing Assistance Retrieving/Set-up of Grooming Items OT ADL-Oral Care General Eval Oral Care Ability Independent OT ADL-Dressing General Eval Upper Body Dressing Ability Minimal Assistance Lower Body Dressing Ability Maximum Assistance Areas Needing Assistance Pull-Over Shirt,Pants/Shorts, Socks,Shoes Comments OT Dressing Comments Due to pain pt needing assist for LLE management needs. educated on use of molded rubber goods cutter however still needing physical assist due to pain. Pt's friend has good safety awareness to be able to assist . Educated to shayan left side first and take out last. OT ADL-Toileting Comments OT Toileting Comments Pt not having to use the toilet. OT ADL-Bathing Comments OT Bathing Comments Pt not wanting to shower. M5 OT- IP IADL's Start: 08/04/19 18:59 Freq: Status: Active Protocol: Document 08/01/19 14:24 [facility] (Rec: 08/04/19 19:19 [facility] [id number]) OT-Instrumental Activities of Daily Living Deficits IADL Deficits Identified Deficits Home Safety Awareness Awareness of Need for Assistance at Home Decreased Awareness Ability to Problem Solve Emergency Unable to Problem Solve Situations Home Safety Comments At this time due to pt's confusion and decreased safety awareness and problem solving , pt friend states will assist for all needs. Pt's friend aware to be there 28/01 and if having to leave to go to the store either to have another friend come and stay with her or do the shopping for the pt. Medication Management Medication Management Caregiver Provides Supervision Money Management Money Management Caregiver Provides Assistance Meal Preparation Meal Preparation Caregiver Provides Assist Commercial Pest Control Technician Commercial Pest Control Technician Caregiver Provides Assist Driving Driving Caregiver Provides Assist M6 OT- IP Functional Cognition Start: 08/04/19 18:59 Freq: Status: Active Protocol: Document 08/01/19 14:24 [facility] (Rec: 08/04/19 19:19 [facility] [id number]) Cognitive Factors Limiting Selfcare Function Cognitive Ability Level of Alertness Alert,Confusional State Patient Orientation Name,Place,Situation Attention Span Ability Capable of Focused Attention, Unable to Sustain Attention Ability to Follow Commands Able to Follow One Step Commands with Increased Time, Able to Follow One Step Commands with Repetition Memory Description Immediate Impaired,Short Term Impaired,Working Impaired Safety Awareness Decreased Recall of Precautions,Decreased Ability to Apply Precautions, Underestimates Need for Assistance Problem Solving Ability Unable to Identify Errors, Needs Assist to Identify Solutions Executive Function Ability Unable to Switch Focus,Unable to Filter Distractions,Unable to Make Plans,Unable to Organize Plans,Unable to Remember Details Cognitive Comments Cognitive Assessment Comments Pt very confused and unable to recall safety awareness for FWW use , anterior precautions , and overall poor safety awareness. Pt trying to stand without use of FWW, trying to shayan pants while standing, and needing step by step commands to process through ADl and functional mobility needs. Pt's friend has good understanding and able to demonstrate good safety to be able to assist pt for all needs. Pt's aware instead on sleeping upstairs will be sure to sleep downstairs so able to hear the pt at night if trying to get out of bed. OT- Vision and Hearing OT- Vision Assessment Visual Acuity Glasses All The Time M7 OT- IP Mobility and Balance Start: 08/04/19 18:59 Freq: Status: Active Protocol: Document 08/01/19 14:24 [facility] (Rec: 08/04/19 19:19 [facility] [id number]) OT- Bed Mobility Assessment Rolling Type of Rolling Roll to Left Supine to Sit Supine to Sit Assist Standby Assistance Sit to Supine Sit to Supine Assist Standby Assistance OT-Transfer Assessment Sit to and From Stand Sit to and from Stand Contact Guard Assistance Transfers Transfer Ability Standby Assistance,Contact Guard Assistance Technique Transfer Destination Bed,Chair Transfer Technique Stand Step Pivot Devices Transfer Assistive Devices Gait Belt,Front Wheeled Walker OT- Balance Assessment Sitting Balance and Reactions Static Sitting Balance Ability Good Dynamic Sitting Balance Ability Fair Standing Balance and Reactions Static Standing Balance Ability Fair M8 OT- IP Objective Assessments Start: 08/04/19 18:59 Freq: Status: Active Protocol: Document 08/01/19 14:24 [facility] (Rec: 08/04/19 19:19 [facility] [id number]) OT Gross Range of Motion Upper Extremity Range of Motion Assessment Within Functional Limits M9 OT- IP Assessment and Plan Start: 08/04/19 18:59 Freq: Status: Active Protocol: Document 08/01/19 14:24 [facility] (Rec: 08/04/19 19:19 [facility] [id number]) OT Summary Assessment and Plan Potential Rehabilitation Potential Good Analytic Complexity at Evaluation Low Summary OT Impairments Pain,Balance,Functional Cognition,Functional Mobility, Grooming,Dressing,Toileting, Bathing,Toilet Transfers, Shower Transfers,Activity Tolerance Progress Towards Goals Progressing Toward Goals,Slow Progress due to Cognition Assessment Summary Pt low complexity and main barrier are decreased functional cognition of safety awareness, unable to recall anterior hip precautions, and needing her friend to give her step by step instructions for all Adl and functional mobility needs. In addition due to left leg pain now needing physical assist for especially ADl needs. Pt to have friend stay with her 28/01 for two weeks. Pt's friend very competent and well aware at the end of her two week stay with pt may need more help and also understands that pt may benefit from having caregivers or need to go to a facility to provide care for her pending how her cognition clears. Goals Grooming Goal Standby Assistance Dressing Goal Standby Assistance Toileting Goal Standby Assistance Bathing Goal Minimal Assistance Toilet Transfer Goal Standby Assistance Shower Transfer Goal Contact Guard Assistance Patient/Caregiver Education Goal Demonstrate Post-Op Precautions,Caregiver Independent Assisting Patient Days to Meet Goals 3 Frequency of Treatment Frequency Of Treatment Once a Day Treatment Plan OT Treatment Plan ADL Training,Functional Cognition Training,Functional Mobility,Patient/Family Education,Discharge Planning Discharge Recommendations OT Discharge Recommendations Home with / Assist,Home Health Home Equipment Needs shower chair
--- NOTE | 2019-08-01 15:36 | PC.NURSE ---
Day shift: Pt off unit to car in WC with RUBI Stephens. Pt's friend will drive her home. Paperwork signed and all questions answered. Pt has all personal belongings and scrips. Ana OLIVEIRA.
--- NOTE | 2019-08-10 10:01 | P.DS_ITS ---
History of Present Illness History of Present Illness Date Patient Seen: 08/01/19 Time Patient Seen: 12:58 Chief complaint: Left Total Hip Arthroplasty/Anterior Approach Narrative: See progress note. Discharge Providers Provider Date of admission: 07/31/19 10:09 Discharge Date: 08/01/19 Consults: 07/31/19 06:00 Consult to Anesthesiology Routine Comment: Consulting Provider: Anesthesiologist Reason for consultation: Regional block for post operative pain control 07/31/19 16:16 Consult to Discharge Planning Routine Comment: Consult to Physical Therapy Evaluate & Treat Comment: Physician Instructions: post op CLIFFORD protocol Consult to Respiratory Therapy Evaluate & Treat Comment: Physician Instructions: Evaluate and treat 07/31/19 17:21 Consult to Dietitian, Adult Routine Comment: Reason For Exam: decreased food intake and wt loose. 08/01/19 12:23 Consult to Occupational Therapy Evaluate & Treat Comment: Physician Instructions: Evaluate and treat Discharge provider: Jaquan Carlin PA-C Summary Hospital Course Discharge Diagnosis: Pre-op diagnosis: left hip OA Hospital Course: rocedure: Left total hip arthroplasty anterior Same procedure as scheduled: Yes Indications: The patient has had progressively worsening left hip pain with radiographic changes consistent with arthritis. Non-operative management has failed and the patient has requested total hip replacement. The risks, benefits and alternatives to surgery were discussed with the patient prior to proceeding. Risks discussed included, but were not limited to, failure to relieve pain, leg length discrepancy, dislocation, stiffness, infection, nerve damage, deep venous thrombosis, pulmonary embolism, stroke, coma, heart attack, permanent paralysis and , as well as the potential need for eventual revision of the prosthetic. Surgeon: Kyra Ronquillo Senior [employer] Dba: Seda Bloom Anesthesia Type: General and Spinal Operative Notes Findings: Severe left hip arthritis, good stability Closure Type: primary Specimen(s): none sent Prosthetic devices, grafts, tissues, transplants, or devices: Ronquillo and Nephew 58 mm R3 cup, neutral poly liner, size 7 standard offset anthology, -3 head Estimated Blood Loss (mL): 250 Blood products transfused: none DC home in stable condition. Exam Vital Signs (past 8 hours): Oxygen Delivery Method Room Air Oxygen Flow Rate 0 Narrative Exam Narrative: see progress note Discharge Plan Discharge Plan Patient Disposition: Home Discharge orders & Medications Prescriptions: New acetaminophen 325 mg Tablet 500 mg PO Q4HR Qty: 30 RF: 0 aspirin 81 mg Tablet,Delayed Release (Dr/Ec) 81 mg PO BID Qty: 60 RF: 0 ibuprofen 400 mg Tablet 400 mg PO Q4HR Qty: 60 RF: 0 docusate sodium [DOK] 100 mg Capsule 100 mg PO BID Qty: 20 RF: 0 hydrocodone-acetaminophen [[place]] 5-325 mg tablet 1 tab PO Q6H PRN (Reason: pain) Qty: 14 RF: 0 Continued levothyroxine 50 mcg tablet See Rx Instructions .ROUTE .COMPLEX Qty: 90 RF: 3 sertraline 25 mg tablet 75 mg PO BEDTIME RF: 0 [LT BREAST PROSTHETIC] 1 ea miscellaneous DIRECTED RF: 0 [PROSTHETIC BRA SUPPO] 1 ea miscellaneous DIRECTED RF: 0 celecoxib [Celebrex] 200 mg Capsule 200 mg PO DAILY RF: 0 cholecalciferol (vitamin D3) 5,000 unit capsule 5,000 unit PO DAILY RF: 0 latanoprost 0.005 % drops 1 drp EYE-BOTH QPM 90 Days Qty: 7 RF: 0 Follow up/Referrals: Kyra Ronquillo MD [Physician] - Diet/Activity/Treatments Activity: Anterior hip precautions Skin/Wound/Dressing Care Report to your healthcare provider any signs of infection, such as:: chills, fever and increased pain Dressing: Leave in place until appointment Visit Report/Discharge Packet Instructions: DI for Hip Replacement, How to Prevent Falls, Stool Softeners, Acetaminophen, Ibuprofen, Hydrocodone/Acetaminophen (By mouth) Stand Alone Forms: Surgery Discharge Discharge Data Attending Provider: Kyra Ronquillo Admit Date/Time: 07/31/19 10:09 Discharges patient from system. Discharge Date/Time: 08/01/19 15:38
== END 2019-08-01 15:38 | disposition home or self-care (01) ==
PROVIDERS: Admitting Provider Orthopaedic Surgery; Visit Provider Orthopaedic Surgery
PROC: (CPT 27130; principal; 2019-07-31 12:15)
DX: M16.12 Unilateral primary osteoarthritis, left hip (principal); M87.052 Idiopathic aseptic necrosis of left femur; E03.9 Hypothyroidism, unspecified
CPT/HCPCS: 27130; 72170; 73502; 76000; 97116; 97161; 97165; 97535; C1776; G0378; C9290; G0379; J0171; J0690; J1100; J2250; J2274; J2405; J2704; J3010

== ENCOUNTER → 2019-11-23 09:09 | Outpatient (CLI) | payer MEDICARE, OTHER, SELFPAY ==
[2019-11-23 11:40] LABS: Thyroid Stimulating Hormone 1.03 uIU/mL (0.47-4.68)
== END ==
PROVIDERS: Referring Provider Family Medicine; Visit Provider Family Medicine
DX: E03.9 Hypothyroidism, unspecified (principal)
CPT/HCPCS: 36415; 84443

== ENCOUNTER → 2020-01-18 09:32 | Outpatient (CLI) | payer MEDICARE, OTHER, SELFPAY ==
[2020-01-19 09:34] LABS: COVID19 Sendout Not Detected (Not Detect)
== END ==
PROVIDERS: PCP Family Medicine; Visit Provider Student in an Organized Health Care Education/Training Program
DX: Z01.812 Encounter for preprocedural laboratory examination (principal)
CPT/HCPCS: 87635

== ENCOUNTER 2020-01-21 07:12 | Outpatient (CLI) | payer MEDICARE, OTHER, SELFPAY ==
[2020-01-21] VITALS (11 sets, daily range): BP systolic 103–138; BP diastolic 49–80; PULSE 63–73; RESP 15–18; TEMP 36.1; O2SAT 99–199
--- NOTE | 2020-01-21 07:13 | DI.RAD.S_ITS ---
PROCEDURE: PAIN L/S FACET INJ/BLK 1ST ABHIJIT COMPARISON: None. INDICATIONS: SPONDYLOSIS FINDINGS: Bilateral needle tip positioning for medial branch block procedures are documented, targeted to the L4, L5 and S1 nerve roots open (6 total procedures). IMPRESSION: Expected anatomic localization of areas of 6 total medial branch block procedures from L4 through S1 bilaterally. Dictated by: Deyvi Paniagua M.D. on 01/21/2020 at 9:30 Approved by: Deyvi Paniagua M.D. on 01/21/2020 at 9:35
--- NOTE | 2020-01-21 07:13 | DI.RAD.S_ITS ---
PROCEDURE: XR LUMBAR SPINE MIN 4V INDICATIONS: back pain TECHNIQUE: 5 views of the lumbar spine were acquired. COMPARISON: None. FINDINGS: Bones: 5 nonrib-bearing vertebrae are present. There is levo scoliotic bony alignment centered at the thoracolumbar junction. No vertebral body compression fractures. No suspicious bony lesions. On lateral view degenerative disc disease is moderately severe at L4-5 and [id number] above and below. Facet osteoarthritis is moderately severe from L2 inferiorly, and appears somewhat more prominent on the right than the left in the area of levoscoliosis. Soft tissues: Overlying bowel gas pattern is normal. No suspicious soft tissue calcifications. Oblique images: No pars defects. IMPRESSION: 19.7 degree levoscoliosis centered at the thoracolumbar junction with overall moderate degenerative disc disease most pronounced at L4-L5 where mild grade 1 retrolisthesis is present. Facet osteoarthritis is greater on the right than the left, and moderately severe from L2 inferiorly, to the degree that spinal and foraminal stenosis likely is associated. Dictated by: Deyvi Paniagua M.D. on 01/21/2020 at 8:42 Approved by: Deyvi Paniagua M.D. on 01/21/2020 at 8:45
[2020-01-21] MEDS: fentaNYL 100 MCG/2 ML INJ 50 MCG IV (08:42)
[2020-01-21] MEDS: MIDAZOLAM 5 MG/5 ML VIAL IV (08:42)
[2020-01-21] MEDS: BUPIVACAINE 0.5% (PF) VIAL 5 ML INJ (09:00)
[2020-01-21] MEDS: IOPAMIDOL 15 ML VIAL 3 ML INJ (09:00)
[2020-01-21] MEDS: LIDOCAINE 1% 20 ML 10 ML INJ (09:00)
--- NOTE | 2020-01-21 09:15 | PM.PROC.IR.1 ---
Date/Time/Diagnoses Date of procedure: 01/21/20 Time of procedure: 09:15 Pre-procedure diagnosis: 1. FACET ARTHROPATHY Post-procedure diagnosis: same Procedure Notes Procedure: 1. BILATERAL L2, L3, L4 DIAGNOSTIC MB BLOCKS Indications: Alejandra is referred by Dr. Moses for treatment of Bilateral Axial LBP. Physician: Rayray Vincent Total Fluoroscopy time (seconds): 13 Total sedation minutes: 24 Complications: none Procedure in detail & Post-procedure care: DESCRIPTION OF PROCEDURE Fluoroscopically guided, contrast-controlled bilateral L2, L3, L4 medial branch blocks with 0.5cc of 0.5% Marcaine. Following review of allergy and review of potential side effects and complications, including, but not necessarily limited to, infection, allergic reaction, local tissue breakdown, nerve injury, paralysis, stroke and possible , the patient indicated that the patient understood and agreed to proceed. An informed consent document was signed by the patient, witnessed by a nurse, and placed in the patient's chart. After review of previous anaesthesic history and IV conscious sedation the patient was deemed safe to proceed with today's procedure with IV conscious sedation as ASA class II designation. Safety time-out was performed to confirm patient ID, procedure to be performed and site of procedure. IV sedation was accomplished with a combination of 2mg of Versed and 50mcg of Fentantyl was administered by the RN after DO order, titrated to patient comfort during the course of the procedure while the patient remained responsive to all verbal commands In the prone position, following sterile prep and drape of the lumbar region, the right L2, L3, L4 anatomical location of the medial branch of the dorsal ramus was identified fluoroscopically. Subsequently an anesthetic skin wheal using 1% lidocaine solution was initiated at each of the anatomical spots. Subsequently then a 22-gauge 3.5-inch spinal needle was atraumatically introduced and advanced under fluoroscopic guidance at each of the corresponding sites at the right L2, L3, L4 MB. After negative aspiration, 0.2cc of Isovue 200 was injected, confirming placement without vascular or intrathecal uptake. Subsequently then 0.5cc of 0.5% Marcaine solution was injected at each of the corresponding sites at the right L2, L3, L4 medial branch locations. The identical procedure was replicated on the left. The patient tolerated the procedure well without signs or symptoms of complications. The patient tolerated the procedure well without signs or symptoms of complications prior to transfer to the recovery area continued monitoring without incident. Post-procedure, the patient was monitored initiating provocative activities to measure the amount of relief from block of the facetogenic pain. The patient reported a VAS of 7 prior to the procedure and a post-procedure VAS of 1. It has been a pleasure to assist in the diagnostic and therapeutic care of your patient. POST OP INSTRUCTIONS The patient was provided with a Pain Log to complete over the next several hours and subsequent days prior to the patient's follow up with the ordering physician. If the patient has religious education teacher relief to the solution applied, then they may be a candidate for medial branch rhizotomy. The patient is aware, was provided, once again, with a Pain Log and will follow up with the referring physician for review and clinical correlation
--- NOTE | 2020-01-21 10:21 | PC.NURSE ---
0915: pt returned to pre proc room via wc. 1PA to transfer from wc to chair. Monitoring resumed
--- NOTE | 2020-01-21 15:43 | PC.NURSE ---
Tolerated procedure without incident. VSS upon transfer to post procedure room to SIGRID Amaya. Versed and Fentanyl administered by Jahaira Gant. All other meds given by Dr. Vincent.
== END 2020-01-21 09:33 | disposition home or self-care (01) ==
LOC: RAD 07:12
PROVIDERS: PCP Family Medicine; Referring Provider Physical Medicine & Rehabilitation; Visit Provider Physical Medicine & Rehabilitation
DX: M47.816 Spondylosis without myelopathy or radiculopathy, lumbar region (principal); M54.5 Low back pain
CPT/HCPCS: 64493; 64494; 72110; 99152; J2250; J3010

== ENCOUNTER → 2020-04-19 08:50 | Outpatient (CLI) | payer MEDICARE, OTHER, SELFPAY ==
--- NOTE | 2020-04-19 08:52 | DI.ECHO.S_ITS ---
[place] [facility] +---------+ : : [address] : : : : [id number] : : : : Phone: [phone] Echocardiogram Report + + :Name: PEE RICHTER Study Date: 04/19/2020 Height: 70 in : :[facility] Weight: 130 lb : : Gender: Female BSA: 1.7 m2 : :: 1940 Age: 79 yrs BP: 120/65 mmHg: :Reason For Study: MVP : : Performed By: Jb Hawthorne : :Referring: CARMEN CASTILLO : + + Interpretation Summary The ejection fraction is estimated to be 60-65%. There is no evidence of mitral valve prolapse. The right ventricular systolic pressure is estimated to be at least 31 mmHg based on an estimated right atrial pressure of 3 mm Hg. There is mild to moderate tricuspid regurgitation. Procedure: A two-dimensional transthoracic echocardiogram with color flow and Doppler was performed. The study quality was technically adequate. Comparison is made with the echocardiogram of 02/22/11. The suprasternal notch views were difficult to obtain and are suboptimal in quality. The patient was in normal sinus rhythm during the exam. The patient had frequent PACs during the exam. Left Ventricle: The left ventricle is normal in size. There is normal left ventricular wall thickness. The ejection fraction is estimated to be 60-65%. There are no focal wall motion abnormalities. Right Ventricle: The right ventricle is normal in size and function. Atria: Both atria are normal in size. There is no Doppler evidence for an atrial septal defect. Mitral Valve: There is a flat closure plane of the the mitral valve leaflets. There is no evidence of mitral valve prolapse. There is trace mitral regurgitation. Aortic Valve: The aortic valve is trileaflet. The aortic valve opens well. There is trace aortic regurgitation. Tricuspid Valve: The tricuspid valve is normal in structure and function. There is mild to moderate tricuspid regurgitation. The right ventricular systolic pressure is estimated to be at least 31 mmHg based on an estimated right atrial pressure of 3 mm Hg. Compared to the prior echo exam, there has been no change in the severity of pulmonary hypertension. Pulmonic Valve: The pulmonic valve is normal in structure and function. There is trace pulmonic regurgitation. Great Vessels: The aortic root is normal size. The dimensions of the ascending aorta are normal. The pulmonary artery is normal size. The IVC is of normal diameter and collapses greater than 50% with a sniff. This suggests a low right atrial pressure of 3 mm Hg. Pericardium/ Pleura There is no pericardial effusion. There is no pleural effusion. MMode/2D Measurements & Calculations LVIDd: 4.5 cm LVOT diam: 2.1 cm LVIDs: 3.1 cm Ao root diam: 2.9 cm FS: 31.1 % asc Aorta Diam: 2.9 cm EPSS: 0.11 cm IVSd: 0.89 cm LVPWd: 0.70 cm LV regan. diameter/BSA (cm/m^2): 2.6 LV sys. diameter/BSA (cm/m^2): 1.8 LA dimension: 2.9 cm RA long axis: 4.2 cm LA A2 area: 15.9 cm2 RA area: 12.8 cm2 LA A4 area: 18.2 cm2 RA vol: 33.4 ml LA length (vol): 5.2 cm RA : 19.2 ml/m2 LA vol: 47.0 ml IVC diam: 1.4 cm LA vol index: 27.1 ml/m2 RVD1 (basal): 3.7 cm RVD2 (mid): 3.5 cm Doppler Measurements & Calculations Ao V2 max: 101.8 cm/sec LVOT Max David: 91.9 cm/sec Ao V2 mean: 75.1 cm/sec LV V1 max P.4 mmHg Ao max P.1 mmHg LV V1 VTI: 21.9 cm Ao mean P.4 mmHg NICOLAS(I,D): 3.3 cm2 Ao V2 VTI: 22.0 cm NICOLAS(V,D): 3.0 cm2 sev ratio: 0.99 NICOLAS indexed to BSA (cm^2/m^2): 1.9 MV E max david: 62.1 cm/sec TR max david: 264.8 cm/sec MV A max david: 65.2 cm/sec TR max P.0 mmHg MV E/A: 0.95 PA V2 max: 72.2 cm/sec Med Peak E' David: 5.3 cm/sec PA V2 mean: 58.0 cm/sec E/E' med: 11.8 PA mean P.4 mmHg Lat Peak E' David: 4.4 cm/sec PA pr(Accel): 41.3 mmHg E/E' lat: 14.0 E/e' average: 12.9 MV dec time: 0.16 sec SV(LVOT): 72.3 ml Reading Physician:10:30 AM
== END ==
PROVIDERS: PCP Family Medicine; Referring Provider Family Medicine; Visit Provider Family Medicine
DX: I07.1 Rheumatic tricuspid insufficiency (principal)
CPT/HCPCS: 93306

== ENCOUNTER → 2020-05-05 07:43 | Outpatient (CLI) | payer MEDICARE, OTHER, SELFPAY ==
--- NOTE | 2020-05-05 | DI.MG.S_ITS ---
UNILATERAL RIGHT DIGITAL SCREENING MAMMOGRAM 3D/2D WITH CAD: 05/05/2020 CLINICAL: Routine screening. Personal history of left breast cancer. Family history of breast cancer. Comparison is made to exams dated: 05/04/2019 mammogram, 05/01/2018 mammogram, and 04/25/2017 mammogram - [facility]. The tissue of right breast is extremely dense, which lowers the sensitivity of mammography. Current study was also evaluated with a Computer Aided Detection (CAD) system. No significant masses, calcifications, or other findings are seen in the breast. There has been no significant interval change. IMPRESSION: NEGATIVE There is no mammographic evidence of malignancy. A 1 year screening mammogram is recommended. This exam was interpreted at Station ID: [id number]. NOTE: For mammograms, a report in lay terms will be sent to the patient. Approximately 15% of breast malignancies will not be visualized mammographically. In the management of a palpable breast mass, a negative mammogram must not discourage biopsy of a clinically suspicious lesion. Electronically Signed By: Tan anton/jun:05/05/2020 08:32:10 letter sent: Normal Exam ACR BI-RADS Category 1: Negative [id number]
== END ==
PROVIDERS: PCP Family Medicine; Referring Provider Family Medicine; Visit Provider Family Medicine
DX: Z12.31 Encounter for screening mammogram for malignant neoplasm of breast (principal); Z85.3 Personal history of malignant neoplasm of breast; Z80.3 Family history of malignant neoplasm of breast
CPT/HCPCS: 77063; 77067

== ENCOUNTER → 2020-09-05 11:44 | Outpatient (CLI) | payer MEDICARE, OTHER, SELFPAY ==
--- NOTE | 2020-09-05 11:46 | DI.RAD.S_ITS ---
PROCEDURE: XR RIBS LT MIN 3V W CXR1V INDICATIONS: left rib pain TECHNIQUE: 3 views of the left ribs were acquired, along with a single view chest. COMPARISON: [facility], CR, XR RIBS LT MIN 3V W CXR1V, 02/23/2019, 10:47. FINDINGS: Surgical changes and devices: Surgical clips projecting in the left mid lung. Bones and chest wall: No fractures or dislocations. No suspicious bony lesions. Overlying soft tissues appear unremarkable. There is lateral curvature of the spine and discogenic changes. Lungs and pleura: No pleural effusions or pneumothorax. A presumed right-sided nipple shadow projecting in the right lung base. Scattered subsegmental atelectasis and/or scarring. No focal consolidation. Mediastinum: Mediastinal contours appear normal. Heart size is normal. IMPRESSION: Scattered subsegmental atelectasis and/or scarring. No focal consolidation. No fracture. A presumed nipple shadow projecting in the right lung base. This could be confirmed with dedicated chest radiographs with nipple marker to exclude pulmonary nodule. Dictated by: Buzz Carson M.D. on 09/05/2020 at 14:06 Approved by: Buzz Carson M.D. on 09/05/2020 at 14:22
== END ==
PROVIDERS: PCP Family Medicine; Referring Provider Nurse Practitioner; Visit Provider Nurse Practitioner
DX: R07.81 Pleurodynia (principal)
CPT/HCPCS: 71101

== ENCOUNTER → 2020-09-16 09:06 | Outpatient (CLI) | payer MEDICARE, OTHER, SELFPAY ==
[2020-09-16 10:27] LABS: BUN Creatinine Ratio 21.3 (6-22); Blood Urea Nitrogen 19 mg/dL (7-17); Estimated Glomerular Filt Rate > 60.0 mL/min (>60)
== END ==
PROVIDERS: Physical Medicine & Rehabilitation; PCP Family Medicine; Referring Provider Family Medicine; Visit Provider Family Medicine
DX: J98.11 Atelectasis (principal)
CPT/HCPCS: 36415; 82565; 84520

== ENCOUNTER → 2020-09-20 10:39 | Outpatient (CLI) | payer MEDICARE, OTHER, SELFPAY ==
--- NOTE | 2020-09-20 10:43 | DI.CT.S_ITS ---
PROCEDURE: CT CHEST W CON INDICATIONS: Follow-up chest x-ray, history of breast CA, failure to thri TECHNIQUE: After the administration of intravenous contrast, 5 mm thick sections acquired from the pulmonary apices to the posterior costophrenic angles. 1 mm axial lung, 5 mm thick coronal and sagittal reformats and 7 mm axial MIP were acquired. For radiation dose reduction, the following was used: automated exposure control, adjustment of mA and/or kV according to patient size. COMPARISON: US, THYROID, 02/07/2016, 11:57. [facility], CR, XR RIBS LT MIN 3V W CXR1V, 09/05/2020, 11:46. FINDINGS: Image quality: Excellent. Lungs and pleura: No CT findings to correlate with the radiodensity in the lower right hemithorax, which is compatible with the nipple shadow. Multiple lung nodules are present as listed below. There are right middle lobe and lingular scars and atelectasis. No acute air space opacities. No pleural effusions or pneumothorax. Central and peripheral airways are patent and normal in caliber. Nodule 1: 4 mm; RML, series 4 image 60; solid. Nodule 2: 4 mm; RLL, series 4 image 60; solid. Nodule 3: 3 mm; RML, series 4 image 67; solid. Nodule 4: 3 mm; RML, series 4 image 19; solid. Mediastinum: Heart size is normal. No pericardial effusion. No mediastinal or hilar adenopathy by size criteria. Thoracic aorta and central pulmonary arteries are normal in size. Esophagus is normal in caliber. No hiatal hernia. Bones and chest wall: There is left mastectomy. No suspicious bony lesions. No vertebral body compression fractures. No axillary or supraclavicular adenopathy by size criteria. Left thyroid lobe is enlarged with heterogeneous enhancement. Abdomen: Visualized upper abdominal solid organs appear normal. Upper abdominal bowel loops are normal in caliber. IMPRESSION: 1. The nodular density in the right lower lung zone is compatible with the nipple shadow. 2. There are multiple lung nodules bilaterally as described above. Please see enclosed follow-up recommendation. 3. Enlarged left thyroid lobe with heterogeneous enhancement. Recommend thyroid ultrasound for follow-up. Fleischner Society criteria for SOLID lung nodule followup. Nodule size (mm)Low-risk patientHigh-risk patient?4No follow-up neededFollow-up at 12 mo; if no change, no further follow-up>2-9Zbilax-xs CT at 12 mo; if no change, no further follow-up needed.Initial follow-up CT at 6-12 mo, then 18-24 mo if no change. >6-8Initial follow-up CT at 6-12 mo, then 18-24 mo if no change. Initial follow-up CT at 3-6 mo, then 9-12 mo and 24 mo if no change. >8Follow-up CT at 3, 9, 24 mo. Or PET and/or biopsy.Same as for low-risk pts. Dictated by: Patito Desai M.D. on 09/20/2020 at 13:54 Approved by: Patito Desai M.D. on 09/20/2020 at 14:04
== END ==
PROVIDERS: PCP Family Medicine; Referring Provider Physical Medicine & Rehabilitation; Visit Provider Physical Medicine & Rehabilitation
DX: J98.11 Atelectasis (principal); E04.9 Nontoxic goiter, unspecified; R07.81 Pleurodynia; R62.7 Adult failure to thrive; R91.8 Other nonspecific abnormal finding of lung field; Z85.3 Personal history of malignant neoplasm of breast
CPT/HCPCS: 71260; Q9967

== ENCOUNTER → 2020-09-28 14:00 | Outpatient (CLI) | payer MEDICARE, OTHER, SELFPAY ==
[2020-09-28 15:32] LABS: Free T3, Triiodothyronine Free 3.54 pg/mL (2.77-5.27)
== END ==
PROVIDERS: PCP Family Medicine; Referring Provider Family Medicine; Visit Provider Family Medicine
DX: E03.9 Hypothyroidism, unspecified (principal)
CPT/HCPCS: 36415; 84439; 84443; 84481

== ENCOUNTER → 2020-10-04 11:57 | Outpatient (CLI) | payer MEDICARE, OTHER, SELFPAY ==
--- NOTE | 2020-10-04 12:01 | DI.US.S_ITS ---
PROCEDURE: US THYROID INDICATIONS: ENLARGED LEFT THYROID GLAND TECHNIQUE: Real-time scanning was performed of the thyroid gland, with image documentation. COMPARISON: [facility], US, THYROID, 02/07/2016, 11:57. FINDINGS: Right: Thyroid lobe measures 3.6 x 1.9 x 1.4 cm, and is diffusely heterogeneous in echotexture. Left: Thyroid lobe measures 7.1 x 3.6 x 3.5 cm, and is diffusely heterogeneous in echotexture. Isthmus: 1.6 mm thick. Nodule number: 1 Location: Right mid Size: Unchanged 1.0 x 0.6 x 1.0 cm. Composition: Predominantly solid Echogenicity: Hypoechoic Shape: wider than tall. Margins: Smooth Echogenic foci: None Total points: 4 ACR TI-RADS category: Moderately suspicious Nodule number: 2 Location: Right mid medial Size: Unchanged 0.7 x 0.4 x 0.5 cm. Composition: Solid Echogenicity: Hypoechoic Shape: wider than tall. Margins: Smooth Echogenic foci: None Total points: 4 ACR TI-RADS category: Moderately suspicious Nodule number: 3 Location: Left inferior Size: 1.5 x 1.1 x 1.7 cm. Composition: Cystic Echogenicity: Anechoic Shape: wider than tall. Margins: Smooth Echogenic foci: None Total points: 0 ACR TI-RADS category: Benign colloid cyst IMPRESSION: 2 small right thyroid nodules. Recommend continued followup ultrasound as detailed below. ACR TI-RADS definitions and recommendations: TI-RADS 1 (benign): 0 points. FNA not needed. TI-RADS 2 (not suspicious): 2 points. FNA not needed. TI-RADS 3 (mildly suspicious): 3 points. * FNA if 2.5 cm or larger, follow up if 1.5 cm or larger (at 1, 3, and 5 years). TI-RADS 4 (moderately suspicious): 4-6 points. * FNA if 1.5 cm or larger, follow up if 1 cm or larger (at 1, 2, 3, and 5 years). TI-RADS 5 (highly suspicious): 7 points or more. * FNA if 1 cm or larger, follow up if 0.5 cm or larger (every year for 5 years). Dictated by: Alexander WILLIS Interpreted: Buzz Carson MD on 10/05/2020 at 16:42 Approved by: Buzz Carson M.D. on 10/05/2020 at 17:31
== END ==
PROVIDERS: PCP Family Medicine; Referring Provider Family Medicine; Visit Provider Family Medicine
DX: E04.2 Nontoxic multinodular goiter (principal)
CPT/HCPCS: 76536

== ENCOUNTER → 2020-11-07 15:07 | Outpatient (CLI) | payer MEDICARE, OTHER, SELFPAY ==
[2020-11-07 18:34] LABS: COVID19 -Nasal RAPID Negative (Negative)
== END ==
PROVIDERS: PCP Family Medicine; Visit Provider Student in an Organized Health Care Education/Training Program
DX: Z01.812 Encounter for preprocedural laboratory examination (principal); Z20.822 Contact with and (suspected) exposure to COVID-19
CPT/HCPCS: 87635; C9803

== ENCOUNTER 2020-11-08 10:08 | Outpatient (CLI) | payer MEDICARE, OTHER, SELFPAY ==
[2020-11-08] VITALS (14 sets, daily range): BP systolic 109–152; BP diastolic 57–73; PULSE 64–88; RESP 12–20; TEMP 36.6–36.9; O2SAT 100
--- NOTE | 2020-11-08 10:18 | DI.RAD.S_ITS ---
PROCEDURE: PAIN L/S MED/LAT N RFA BILAT INDICATIONS: SPONDYLOSIS COMPARISON: [facility], XA, PAIN L/S FACET INJ/BLK 1ST ABHIJIT, 01/21/2020, 7:51. FINDINGS: Fluoroscopic spot filming was performed to verify placement of spinal needles at the L2, L3, and L4 levels on both sides, as labeled on the films. IMPRESSION: Intraprocedural examination within normal limits. Dictated by: Darwin Diego M.D. on 11/08/2020 at 12:29 Approved by: Darwin Diego M.D. on 11/08/2020 at 12:30
[2020-11-08] MEDS: MIDAZOLAM 5 MG/5 ML VIAL IV (11:15)
[2020-11-08] MEDS: fentaNYL 100 MCG/2 ML INJ 50 MCG IV (11:15)
[2020-11-08] MEDS: BUPIVACAINE 0.5% (PF) VIAL 5 ML INJ (11:22)
[2020-11-08] MEDS: LIDOCAINE 1% 20 ML 10 ML INJ (11:22)
--- NOTE | 2020-11-08 11:57 | P.PCN_ITS ---
Date/Time/Diagnoses Date of procedure: 11/08/20 Time of procedure: 11:57 Pre-procedure diagnosis: 1. RECALCITRANT FACET ARTHROPATHY Post-procedure diagnosis: same Procedure Notes Procedure: 1. BILATERAL L2, L3, L4 MEDIAL BRANCH RADIOFREQUENCY NEUROTOMY Indications: Alejandra Ambrocio is referred by Dr. Moses for treatment of facet arthropathy. Physician: Rayray Vincent Total Fluoroscopy time (seconds): 24 Total sedation minutes: 37 Complications: none Procedure in detail & Post-procedure care: DESCRIPTION OF PROCEDURE Bilateral L2, L3, L4 medial branch radiofrequency neurotomy The patient is well known to this clinic having undergone previous facet injections with good but temporary relief. The patient has experienced appropriate, concordant relief with previous facet and median branch blocks but the patient's pain has been recalcitrant to further conservative measures. Therefore, based upon the patient's relief and persistent symptoms, the patient is considered an appropriate candidate for facet rhizotomy. All of the patient's questions regarding the risks versus benefits of the procedure, including, but not limited to, bleeding, infection, temporary as well as lasting nerve injury, paralysis, stroke, and , as well treatment alternatives were answered to satisfaction. After obtaining informed consent, denial of pertinent drug allergies, as well as being made aware of the potential risks of bleeding, infection, spinal cord trauma, paralysis, temporary and permanent nerve damage, seizure, stroke, and possible , the patient was brought to the fluoroscopy suite and positioned prone on the fluoroscopy table. The lumbar region was prepped with chlorhexadine and covered with a fenestrated drape in the usual sterile fashion. Appropriate monitors applied including pulse oximeter, pulse, and blood pressure for regular monitoring throughout the procedure. After review of previous anaesthesic history and IV conscious sedation the patient was deemed safe to proceed with today's procedure with IV conscious sedation as ASA class II designation. Safety time-out was performed to confirm patient ID, procedure to be performed and site of procedure. IV sedation was accomplished with a combination of 2mg of Versed and 50mcg of Fentanyl administered by the RN after DO order, titrated to patient comfort during the course of the procedure while the patient remained responsive to all verbal commands. After local infiltration using 1% lidocaine, under fluoroscopic guidance, a 10- cm RF insulated needle with a 10-mm active tip was positioned parallel to the junction of the right the superior articulating process where the L4 medial branch resides. Needle placement was confirmed with motor stimulation of .5v on the right which produced local stimulation without radicular component. The stimulation was then increased to 2v with, once again, only local multifidus stimulation without radicular component. The needle was then removed and the identical procedure was performed along the length of the right L3 medial branch with motor stimulation at .7v on the right. The identical procedure was once again performed along the length of the right L2 and medial branch with motor stimulation of .5v on the right. The medial branches were then anesthetised with 0.5% marcaine. This was then followed by two discreet lesions performed at 80 degrees Celsius for 90 seconds each. The identical procedures were repeated on the left. The patient tolerated the procedure well without signs or symptoms of complications prior to transfer to the recovery area continued monitoring without incident. The patient was then transferred to the recovery area where they were observed for an appropriate period of time after the injection. The patient reported a VAS score of 7 prior to the procedure and a post-procedure VAS of 1. POST OP INSTRUCTIONS The patient was provided a Pain Log to continue to record the patient's response to the target-specific procedure prior to the patient's follow-up visit with the referring physician. Additionally, specific post-injection care instructions and a contact number to our office were provided if concerns arise regarding possible complications associated with the procedure are suspected.
== END 2020-11-08 12:31 | disposition home or self-care (01) ==
PROVIDERS: PCP Family Medicine; Referring Provider Physical Medicine & Rehabilitation; Visit Provider Physical Medicine & Rehabilitation
DX: M47.816 Spondylosis without myelopathy or radiculopathy, lumbar region (principal)
CPT/HCPCS: 64635; 64636; 99152; 99153; J2250; J3010

== ENCOUNTER → 2021-01-11 09:41 | Outpatient (CLI) | payer MEDICARE, OTHER, SELFPAY ==
[2021-01-11 10:32] LABS: Add Manual Diff / Slide Review NO; Basophils Absolute Auto 100 /uL (0-100); Basophils Percent Auto 1.3 % (0-2); Eosinophils Absolute Auto 100 /uL (0-450); Eosinophils Percent Auto 3.6 % (2-4); Hematocrit 36.9 % (36-46); Hemoglobin 12.4 g/dL (12.0-16.0); Lymphocytes Absolute Auto 1100 /uL (1100-4500); Lymphocytes Percent Auto 27.3 % (25-40); Mean Corpuscular HGB Conc 33.6 % (30-36); Mean Corpuscular Hemoglobin 30.2 PG (26-34); Mean Corpuscular Volume 89.8 fL (80-100); Monocytes Absolute Auto 400 /uL (0-900); Monocytes Percent Auto 9.5 % (3-14); Neutrophils Absolute Auto 2400 /uL (1500-7000); Neutrophils Percent Auto 58.3 % (50-75); Platelet Count 225 X10^3/uL (150-400); Red Blood Cell Count 4.11 X10^6/uL (4.0-5.2); Red Cell Distribution Width 13.3 % (11.6-14.8); White Blood Cell Count 4.2 X10^3/uL (4.5-11.0)
[2021-01-11 11:08] LABS: HEMOLYSIS < 15 (0-50); Iron 93 ug/dL (37-170)
[2021-01-11 11:20] LABS: Percent Iron Saturation 34 % (15-50); Total Iron Binding Capacity 273 ug/dL (265-497); Transferrin 222 mg/dL (206-381)
[2021-01-11 11:40] LABS: TSH w/ Reflex to FT4 0.48 uIU/mL (0.47-4.68)
[2021-01-11 12:20] LABS: Alanine Aminotransferase 26 IU/L (<35); Albumin 3.9 g/dL (3.5-5.0); Albumin Globulin Ratio 1.6 (1.0-2.8); Alkaline Phosphatase 76 U/L (38-126); Aspartate Aminotransferase 24 IU/L (14-36); BUN Creatinine Ratio 27.3 (6-22); Bilirubin Total 0.3 mg/dL (0.2-1.3); Blood Urea Nitrogen 21 mg/dL (7-17); Calcium 9.5 mg/dL (8.4-10.2); Carbon Dioxide 27 mmol/L (22-32); Chloride 107 mmol/L (98-107); Estimated Glomerular Filt Rate > 60.0 mL/min (>60); Globulin 2.5 g/dL (1.7-4.1); Glucose 94 mg/dL (80-110); HEMOLYSIS < 15 (0-50); Potassium 4.3 mmol/L (3.4-5.1); Sodium 139 mmol/L (137-145); Total Protein 6.4 g/dL (6.3-8.2)
== END ==
PROVIDERS: PCP Family Medicine; Referring Provider Physical Medicine & Rehabilitation; Visit Provider Physical Medicine & Rehabilitation
DX: R43.2 Parageusia (principal); Z85.3 Personal history of malignant neoplasm of breast; E03.9 Hypothyroidism, unspecified; H90.0 Conductive hearing loss, bilateral; M47.816 Spondylosis without myelopathy or radiculopathy, lumbar region; M41.20 Other idiopathic scoliosis, site unspecified
CPT/HCPCS: 36415; 80053; 83540; 83550; 84443; 85025; 99214

== ENCOUNTER → 2021-03-09 11:47 | Outpatient (CLI) | payer MEDICARE, OTHER, SELFPAY ==
--- NOTE | 2021-03-09 11:54 | DI.US.S_ITS ---
PROCEDURE: US THYROID INDICATIONS: FOLLOW UP TECHNIQUE: Real-time scanning was performed of the thyroid gland, with image documentation. COMPARISON: [facility], US, US THYROID, 10/04/2020, 12:12. FINDINGS: Right: Thyroid lobe measures 4.3 x 1.5 x 1.3 cm, and is diffusely heterogeneous in echotexture. Left: Thyroid lobe measures 7.2 x 3.7 x 4.6 cm, and is diffusely heterogeneous in echotexture. Isthmus: 2.1 mm thick. Nodule number: 1 Location: Left superior Size: 1.2 x 0.9 x 1.3 cm. Composition: Predominantly cystic Echogenicity: Heterogeneous Shape: wider than tall. Margins: Smooth Echogenic foci: None Total points: 2 ACR TI-RADS category: Not suspicious Nodule number: 2 Location: Left inferior Size: Unchanged at 1.7 x 1.0 x 2.0 cm. Composition: Cystic Echogenicity: Anechoic Shape: wider than tall. Margins: Smooth Echogenic foci: None Total points: 0 ACR TI-RADS category: Benign Nodule number: 3 Location: Right mid Size: Unchanged 1.1 x 0.8 x 0.7 cm. Composition: Spongy form Echogenicity: Indeterminate Shape: wider than tall. Margins: Smooth Echogenic foci: None Total points: 2 ACR TI-RADS category: Not suspicious Nodule number: 4 Location: Right mid Size: 6 unchanged 0.6 x 0.3 x 0.7 cm. Composition: Solid Echogenicity: Predominantly isoechoic Shape: wider than tall. Margins: Smooth Echogenic foci: None Total points: 3 ACR TI-RADS category: Mildly suspicious IMPRESSION: No change in bilateral thyroid nodules. Given the stability and size of the nodules, no additional follow-up is warranted. Dictated by: Alexander WILLIS Interpreted: Buzz Carson MD on 03/09/2021 at 13:22 Transcribed by: ANALY on 03/09/2021 at 13:26 Approved by: Buzz Carson M.D. on 03/09/2021 at 16:17
== END ==
PROVIDERS: PCP Family Medicine; Referring Provider Family Medicine; Visit Provider Family Medicine
DX: E04.2 Nontoxic multinodular goiter (principal)
CPT/HCPCS: 76536

== ENCOUNTER → 2021-05-08 09:43 | Outpatient (CLI) | payer MEDICARE, OTHER, SELFPAY ==
--- NOTE | 2021-05-08 | DI.MG.S_ITS ---
UNILATERAL RIGHT DIGITAL SCREENING MAMMOGRAM 3D/2D WITH CAD POST MASTECTOMY: 05/08/2021 CLINICAL: Routine screening. Breast cancer. Family history of breast cancer. Comparison is made to exams dated: 05/05/2020 mammogram, 05/04/2019 mammogram, and 05/01/2018 mammogram - [facility]. The tissue of right breast is extremely dense, which lowers the sensitivity of mammography. Current study was also evaluated with a Computer Aided Detection (CAD) system. No significant masses, calcifications, or other findings are seen in the breast. There has been no significant interval change. IMPRESSION: NEGATIVE There is no mammographic evidence of malignancy. A 1 year screening mammogram is recommended. This exam was interpreted at Station ID: [id number]. NOTE: For mammograms, a report in lay terms will be sent to the patient. Approximately 15% of breast malignancies will not be visualized mammographically. In the management of a palpable breast mass, a negative mammogram must not discourage biopsy of a clinically suspicious lesion. Electronically Signed By: Tan anton/jun:05/08/2021 12:30:58 letter sent: Normal Exam ACR BI-RADS Category 1: Negative [id number]
== END ==
PROVIDERS: PCP Family Medicine; Referring Provider Family Medicine; Visit Provider Family Medicine
DX: Z12.31 Encounter for screening mammogram for malignant neoplasm of breast (principal); Z85.3 Personal history of malignant neoplasm of breast; Z80.3 Family history of malignant neoplasm of breast
CPT/HCPCS: 77063; 77067

== ENCOUNTER → 2021-09-13 09:32 | Outpatient (CLI) | payer MEDICARE, OTHER, SELFPAY | PROVIDERS: PCP Family Medicine; Referring Provider Family Medicine; Visit Provider Family Medicine | DX: E03.9 Hypothyroidism, unspecified (principal); Z13.9 Encounter for screening, unspecified | CPT/HCPCS: 36415; 84443 ==

== ENCOUNTER → 2021-10-05 08:49 | Outpatient (CLI) | payer MEDICARE, OTHER, SELFPAY ==
--- NOTE | 2021-10-05 | DI.NM.S_ITS ---
PROCEDURE: NM BONE SCAN WHOLE BODY RADIOPHARMACEUTICAL: 20.7 mCi Tc-99m MDP IV. INDICATIONS: PAIN IN PELVIS/GROIN TECHNIQUE: Delayed whole-body scintigrams were obtained approximately 3-4 hours after intravenous injection of radiotracer. Anterior and posterior views were acquired from vertex to feet. Additional left and right oblique views of the pelvis and hips were obtained. COMPARISON: [facility], CR, XR PELVIS WITH BILATERAL HIPS 5 VIEWS, 05/10/2021, 13:25. [facility], CR, XR THORACIC SPINE 2 VIEWS, 10/01/2017, 14:27. [facility], CR, XR LUMBAR SPINE WITH OLBIQUES PLUS FLEXION EXTENSION, 10/01/2017, 14:21. [facility], CR, XR LUMBAR SPINE MIN 4V, 01/21/2020, 7:55. [facility], CR, XR PELVIS WITH LATERAL HIP RIGHT, 09/20/2021, 8:33. FINDINGS: Regional bone scan was obtained centered to the hips and pelvis. Bilateral hip arthropathy. There is increased activity around hip prostheses most pronounced in the area of the greater trochanters. No lesions are identified in skull, sternum, clavicles, scapulae, ribs, bony pelvis, and visualized shafts of the long bones. Mild scoliosis. There are foci of level increased uptake in cervical, thoracic and lumbar spine with distribution indistinguishable from degenerative disc and facet disease; early metastasis to spine could be obscured by degenerative changes. There are foci of increased periarticular activity involving shoulders, sternoclavicular joints, elbows, wrists, hands, hips, SI joints, knees, ankles and feet, compatible with degenerative/arthritic changes. IMPRESSION: 1. Bilateral hip arthroplasties. Mildly increased uptake around hip prostheses is noted, fairly symmetric and more pronounced in the greater trochanters. The scintigraphic findings are nonspecific and most compatible with postsurgical changes. No definitive scintigraphic findings to suggest prosthesis loosening. 2. Degenerative and arthritic changes in multiple peripheral joints. 3. Degenerative changes in cervical, thoracic and lumbar spine. Dictated by: Patito Desai M.D. on 10/05/2021 at 14:24 Approved by: Patito Desai M.D. on 10/05/2021 at 14:31
== END ==
PROVIDERS: PCP Family Medicine; Referring Provider Orthopaedic Surgery; Visit Provider Orthopaedic Surgery
DX: M47.814 Spondylosis without myelopathy or radiculopathy, thoracic region (principal); M47.812 Spondylosis without myelopathy or radiculopathy, cervical region; M47.816 Spondylosis without myelopathy or radiculopathy, lumbar region; R10.2 Pelvic and perineal pain; M25.551 Pain in right hip; Z96.643 Presence of artificial hip joint, bilateral
CPT/HCPCS: 78306; A9503